=== PATIENT | female | born 1955 | race Caucasian/White ===

== ENCOUNTER 2019-10-10 12:01 | Inpatient (IN) | payer BC ==
[~2019-10-10] VITALS: Ht 167.6 cm; Wt 103.3 kg
[2019-10-10] MEDS: insulin glargine (Lantus) pen - multi-dose SQ SCH (01:00)
[2019-10-10] MEDS ORDERED: normal saline 1000ML IV soln IV ONE (12:40)
[2019-10-10 13:02] LABS: CLARITY,URINE CLOUDY (Clear); COLOR,URINE YELLOW (Yellow); GLUCOSE, URINE NEGATIVE (Neg); KETONES,URINE 15 mg/dl (Neg); LEUKOCYTE ESTERASE ,URINE NEGATIVE (Neg); NITRITES, URINE NEGATIVE (Neg); OCCULT BLOOD,URINE MODERATE (Neg); PROTEIN,URINE 100 mg/dl (Neg); UROBILINOGEN,URINE 0.2 E.U/dL (0.2-1.0)
[2019-10-10 13:03] LABS: UA COLLECTION TYPE FOLEY CATH
[2019-10-10 13:10] LABS: MUCUS STRANDS MODERATE /LPF (Neg); SQUAMOUS EPITHELIAL CELL,UR FEW /LPF (FEW)
[2019-10-10 13:11] LABS: HYALINE CASTS 0-3 /LPF (NEGATIVE)
[2019-10-10 13:16] LABS: TRANSITIONAL EPI CELLS,URINE FEW /HPF
[2019-10-10 13:21] LABS: BACTERIA,URINE NONE SEEN /HPF (Neg)
[2019-10-10 13:22] LABS: AMORPHOUS URATES 1+
[2019-10-10] MEDS ORDERED: HYDROmorphone 1 mg/ml syringe IV ONE (13:30)
--- NOTE | 2019-10-10 13:59 | NUR ---
CT CALLED, INFORMED THEM PATEE AWARE PT DOES NOT WANT THE ORAL CONTRAST, UNDERSTANDS ITS A BETTER PICTURE. PT AGREED TO IV. CURRENTLY SREEKANTH PLACING IV LINE, PICC LINE IS NOT WORKING.
[2019-10-10 14:09] LABS: BASOPHILS % (AUTO) 0.2 % (0-1); EOSINOPHILS % (AUTO) 0.2 % (0-6); HEMOGLOBIN 7.1 g/dl (12.0-16.0); LYMPHOCYTES # (AUTO) 1.2 X10'3 (1.1-4.8); LYMPHOCYTES % (AUTO) 6.5 % (21-51); MEAN CORPUSCULAR HEMOGLOBIN 27.2 PG (27.0-31.0); MEAN CORPUSCULAR HGB CONC 32.2 g/dL (33.0-36.5); MEAN CORPUSCULAR VOLUME 84.4 FL (78-98); MONOCYTES # (AUTO) 1.2 X10'3 (0-0.9); MONOCYTES % (AUTO) 6.2 % (2-12); NEUTROPHILS # (AUTO) 16.3 X10'3 (1.8-7.7); NEUTROPHILS % (AUTO) 86.9 % (42-75); PLATELET COUNT 384 X10'3 (140-440); RED BLOOD COUNT 2.61 X10'6 (4.20-5.60); WHITE BLOOD COUNT 18.7 X10'3 (4.5-11.0)
[2019-10-10] MEDS ORDERED: iohexol 300mg/ml 100ml inj. ONE (14:14)
[2019-10-10 14:24] LABS: PARTIAL THROMBOPLASTIN TIME 37 SECONDS (22-32)
[2019-10-10 14:40] LABS: ALANINE AMINOTRANSFERASE 24 U/L (12-78); ALBUMIN 1.5 G/DL (3.4-5.0); ALBUMIN/GLOBULIN RATIO 0.3 (1.1-1.5); ALKALINE PHOSPHATASE 557 IU/L (46-116); ANION GAP 6 (8-16); ASPARTATE AMINO TRANSFERASE 27 U/L (10-37); BILIRUBIN,TOTAL 0.5 MG/DL (0.1-1.0); BLOOD UREA NITROGEN 8 MG/DL (7-18); BUN/CREATININE RATIO 13.6 (6.6-38.0); CALCIUM 8.1 MG/DL (8.5-10.1); CHLORIDE 104 MMOL/L (99-107); CREATININE 0.59 MG/DL (0.40-0.90); GLUCOSE 111 MG/DL (70-104); MAGNESIUM 1.7 MG/DL (1.5-2.4); POTASSIUM 3.6 MMOL/L (3.5-5.1); SODIUM 138 MMOL/L (135-145); TOTAL CARBON DIOXIDE 28.1 MMOL/L (24-32); TOTAL PROTEIN 5.8 G/DL (6.4-8.2); eGFR > 90 ML/MIN
--- NOTE | 2019-10-10 14:47 | NUR ---
MEDICAL RECORDS RELEASE FAXED TO [facility]
[2019-10-10] MEDS ORDERED: piperacillin/tazo 3.375gm/50ml 50 ML IV ONE (14:50)
[2019-10-10 14:54] LABS: ANISOCYTOSIS 3+; HYPOCHROMASIA 1+; MICROCYTOSIS 1+; PLATELET ESTIMATE NORMAL
--- NOTE | 2019-10-10 14:57 | NUR ---
PATIENT'S SON VISH PHONE NUMBER [phone]
--- NOTE | 2019-10-10 15:50 | NUR ---
CALLED FOR UPDATE ON MEDICAL RECORDS, EXPECTING TO BE FAXED WITHIN THE NEXT 30 MINUTES
[2019-10-10] MEDS ORDERED: INSU100V43 SQ (16:24)
[2019-10-10] MEDS ORDERED: FAMO20TA8 PO (16:24)
[2019-10-10] MEDS ORDERED: FOLI0.4T2 PO (16:24)
[2019-10-10] MEDS ORDERED: LISI10TA4 PO (16:24)
[2019-10-10] MEDS ORDERED: CHOL100025 PO (16:24)
[2019-10-10] MEDS ORDERED: INSU100V9 SQ (16:24)
[2019-10-10] MEDS ORDERED: TRAZ-256 PO (16:29)
[2019-10-10] MEDS ORDERED: POLY17PO10 PO (16:29)
[2019-10-10] MEDS: morphine 4 MG/ML inj SYRINge IV PRN ×4 (16:31→21:14)
[2019-10-10] MEDS ORDERED: ALBU2.5V13 NEB (16:31)
[2019-10-10] MEDS ORDERED: mag hydrox/Alum hydrox/simeth 30ml oral suspension PO PRN (16:55)
[2019-10-10] MEDS ORDERED: morphine 2 MG/ML inj. syringe IV PRN (16:55)
[2019-10-10] MEDS ORDERED: magnesium hydroxide 30ml (MOM) UD suspension PO PRN (16:55)
[2019-10-10] MEDS: normal saline 1000ml 1,000 ML IV SCH (17:00)
--- NOTE | 2019-10-10 18:47 | NUR ---
Wound pictures placed on chart of abd post op wound. Packed wound with moist gauze and dressed with abd pad and bordered gauze. Patient tolerated procedure well.
[2019-10-10] MEDS ORDERED: traZODone 50mg tablet PO PRN (18:50)
[2019-10-10] MEDS ORDERED: polyethylene glycol 3350 17gm powd pack PO PRN (18:50)
[2019-10-10] MEDS ORDERED: piperacillin/tazo 4.5gm/100ml 100 ML IV SCH (20:00)
[2019-10-10] MEDS: famotidine 10mg tablet PO SCH (20:00)
[2019-10-10] MEDS ORDERED: famotidine 20mg tablet PO SCH (20:00)
[2019-10-10] MEDS: heparin, porcine 5000 units/ml vial SQ SCH (20:35)
[2019-10-10] MEDS: linezolid 600mg/300ml PREMIX 300 ML IV SCH (21:05)
--- NOTE | 2019-10-10 21:21 | NUR ---
PT PULLED UP IN BED AND REPOSITIONED WITH PILLOW UNDER PT'S LEFT SIDE. PT REPORTS THAT SHE FEELS BETTER.
--- NOTE | 2019-10-10 21:24 | NUR ---
AYAN GONZALES RN OF SURGICAL WILL TELL RN TO CALL ME.
[2019-10-10] MEDS: albuterol 2.5 MG/3 ML nebule NEB SCH (21:31)
--- NOTE | 2019-10-10 21:38 | NUR ---
RN NOT AVAILABLE FOR REPORT
--- NOTE | 2019-10-10 22:45 | NUR ---
Report from Siria BARRIOS RN received at around 0 and patient followed shortly accompanied by her daughter. Patient transferred from [facility] to bed using slide board and settled in to new surroundings. Patient is currently NPO status pending possible surgery 10/11. Mouth swabs provided. Pt. deneis any pain at this time.
[2019-10-10 23:15] VITALS: BP 130/60
[2019-10-11] VITALS (15 sets, daily range): BP systolic 103–145; BP diastolic 43–72
[2019-10-11] MEDS: morphine 2 MG/ML inj. syringe IV PRN ×3 (01:12→13:56)
--- NOTE | 2019-10-11 01:46 | NUR ---
PT DOES NOT HAVE AN APPT DUR TO BEING HOSPITALIZED SINCE MAY 2019 Addendum: 10/11/19 at 0232 by Noemy Koroma RN Amended: Links added.
--- NOTE | 2019-10-11 01:50 | NUR ---
no appt d/t being hospitalized since may 2019 Addendum: 10/11/19 at 0153 by Noemy Koroma RN Amended: Links added.
[2019-10-11] MEDS: piperacillin/tazo 4.5gm/100ml 100 ML IV SCH ×3 (01:55→20:31)
[2019-10-11] MEDS: albuterol 2.5 MG/3 ML nebule NEB SCH ×4 (02:00→21:03)
[2019-10-11] MEDS: normal saline 1000ml 1,000 ML IV SCH ×3 (02:40→22:51)
[2019-10-11 05:44] LABS: BASOPHILS # (AUTO) 0.1 X10'3 (0-0.2); BASOPHILS % (AUTO) 0.5 % (0-1); EOSINOPHILS # (AUTO) 0.1 X10'3 (0-0.9); EOSINOPHILS % (AUTO) 0.7 % (0-6); LYMPHOCYTES # (AUTO) 1.3 X10'3 (1.1-4.8); MEAN CORPUSCULAR HEMOGLOBIN 27.3 PG (27.0-31.0); MEAN CORPUSCULAR HGB CONC 32.3 g/dL (33.0-36.5); MEAN CORPUSCULAR VOLUME 84.3 FL (78-98); MEAN PLATELET VOLUME 8.7 FL (7.4-10.4); MONOCYTES # (AUTO) 0.8 X10'3 (0-0.9); MONOCYTES % (AUTO) 6.8 % (2-12); NEUTROPHILS # (AUTO) 9.4 X10'3 (1.8-7.7); PLATELET COUNT 347 X10'3 (140-440); RED CELL DISTRIBUTION WIDTH 21.7 % (11.5-14.5); WHITE BLOOD COUNT 11.6 X10'3 (4.5-11.0)
[2019-10-11 05:58] LABS: HEMATOCRIT 20.3 % (35.0-45.0); HEMOGLOBIN 6.6 g/dl (12.0-16.0)
[2019-10-11 06:04] LABS: ALBUMIN 1.3 G/DL (3.4-5.0); ANION GAP 8 (8-16); BLOOD UREA NITROGEN 6 MG/DL (7-18); BUN/CREATININE RATIO 12.5 (6.6-38.0); CALCIUM 7.9 MG/DL (8.5-10.1); CHLORIDE 107 MMOL/L (99-107); CREATININE 0.48 MG/DL (0.40-0.90); GLUCOSE 78 MG/DL (70-104); POTASSIUM 3.5 MMOL/L (3.5-5.1); SODIUM 140 MMOL/L (135-145); TOTAL CARBON DIOXIDE 24.7 MMOL/L (24-32); eGFR > 90 ML/MIN
--- NOTE | 2019-10-11 06:20 | NUR ---
Problems reprioritized. Patient report given, questions answered & plan of care reviewed with Marley OSEI.
[2019-10-11 06:58] LABS: ANISOCYTOSIS 3+; GIANT PLATELET FEW; PLATELET ESTIMATE NORMAL
[2019-10-11 06:59] LABS: HYPOCHROMASIA 1+
[2019-10-11] MEDS: famotidine 10mg tablet PO SCH ×2 (07:41→22:25)
[2019-10-11] MEDS: lisinopril 10 MG tablet PO SCH (07:41)
[2019-10-11] MEDS: linezolid 600mg/300ml PREMIX 300 ML IV SCH ×2 (07:43→20:31)
[2019-10-11] MEDS: heparin, porcine 5000 units/ml vial SQ SCH ×2 (07:58→11:42)
[2019-10-11] MEDS: vitamin D (cholecalciferol) 1,000 unit tablet PO SCH (08:00)
[2019-10-11] MEDS: folic acid 1mg tablet PO SCH (08:00)
[2019-10-11] MEDS ORDERED: midazolam 2 mg/2 ml injection IV PRN (08:40)
[2019-10-11] MEDS ORDERED: fentaNYL/PF 50MCG/1 ML 2ML syringe IV PRN (08:40)
[2019-10-11] MEDS ORDERED: LIDOcaine 1%/PF 5ML 10 MG/ML VIAL SQ ONE (08:40)
--- NOTE | 2019-10-11 09:34 | NUR ---
PICC mid to ddistal SVC. Ok to use.
--- NOTE | 2019-10-11 10:13 | NUR ---
Patient came with FC in place, placed on 09/20/2019 at [facility]. Addendum: 10/11/19 at 1016 by Marley Rivera RN Amended: Links added.
[2019-10-11 13:10] LABS: HEMATOCRIT 23.4 % (35.0-45.0); HEMOGLOBIN 7.7 g/dl (12.0-16.0); MEAN CORPUSCULAR HEMOGLOBIN 27.7 PG (27.0-31.0); MEAN CORPUSCULAR HGB CONC 32.9 g/dL (33.0-36.5); MEAN CORPUSCULAR VOLUME 84.3 FL (78-98); MEAN PLATELET VOLUME 8.5 FL (7.4-10.4); PLATELET COUNT 330 X10'3 (140-440); RED BLOOD COUNT 2.78 X10'6 (4.20-5.60); RED CELL DISTRIBUTION WIDTH 20.4 % (11.5-14.5); WHITE BLOOD COUNT 10.8 X10'3 (4.5-11.0)
[2019-10-11] MEDS ORDERED: fentaNYL/PF 50MCG/1 ML 2ML syringe ONE (14:30)
[2019-10-11] MEDS ORDERED: midazolam 2 mg/2 ml injection ONE (14:30)
[2019-10-11] MEDS ORDERED: NORMAL SALINE IV ONE (15:25)
[2019-10-11] MEDS ORDERED: SINCALIDE IV ONE (15:25)
[2019-10-11] MEDS: Dakins solution (1/4 strength) 473ml solution TP SCH (16:06)
--- NOTE | 2019-10-11 16:53 | NUR ---
Calorie Count/Malnutrition consults: Pt admit w/ abdominal wall cellulitis and necrotic stoma found to have abdominal wall abscesses as well per MD note. Pt NPO since admit and to remain NPO for OR tomorrow for stoma revision per RN. Pt hx prior colectomy and colostomy. No colostomy output noted today. RN reports pt not appropriate for calorie count at this time. Pt has mild weakness, current wt pt stated w/ BMI 38 and no wt hx, no significant edema noted, and does not meet minimum malnutrition criteria at this time. Pt is receiving zyvox and will need zyvox ed once stable post-op. Will continue to monitor for diet advancement and PO diet tolerance. Addendum: 10/11/19 at [address] Amended: Links added.
[2019-10-11] MEDS: ketorolac trometh. 30mg/ml inj. IV PRN (17:53)
--- NOTE | 2019-10-11 18:00 | NUR ---
Problems reprioritized. Patient report given, questions answered & plan of care reviewed with Tiffanie OSEI.
--- NOTE | 2019-10-11 18:00 | NUR ---
Problems reprioritized. Patient report given, questions answered & plan of care reviewed with Pa.
[2019-10-11] MEDS ORDERED: ketorolac trometh. 30mg/ml inj. IV SCH (20:00)
[2019-10-11] MEDS ORDERED: ketorolac trometh. 30mg/ml inj. IM SCH (20:00)
[2019-10-11] MEDS: insulin glargine (Lantus) pen - multi-dose SQ SCH (21:00)
[2019-10-12] VITALS (18 sets, daily range): BP systolic 105–183; BP diastolic 53–82
[2019-10-12] MEDS: ketorolac trometh. 30mg/ml inj. IV PRN (01:25)
[2019-10-12] MEDS: albuterol 2.5 MG/3 ML nebule NEB SCH ×3 (02:00→21:53)
[2019-10-12] MEDS: normal saline 1000ml 1,000 ML IV SCH ×2 (05:13→18:51)
--- NOTE | 2019-10-12 06:35 | NUR ---
Patient in room [facility]EN 353. I have received report from Intapp and had the opportunity to ask questions and assume patient care.
[2019-10-12] MEDS: linezolid 600mg/300ml PREMIX 300 ML IV SCH ×2 (07:05→22:55)
[2019-10-12] MEDS: piperacillin/tazo 4.5gm/100ml 100 ML IV SCH ×2 (07:05→23:43)
[2019-10-12] MEDS: heparin, porcine 5000 units/ml vial SQ SCH ×2 (08:00→21:38)
[2019-10-12] MEDS: Dakins solution (1/4 strength) 473ml solution TP SCH ×2 (08:00→20:00)
[2019-10-12] MEDS: folic acid 1mg tablet PO SCH (08:00)
[2019-10-12] MEDS: lisinopril 10 MG tablet PO SCH (08:00)
[2019-10-12] MEDS: vitamin D (cholecalciferol) 1,000 unit tablet PO SCH (08:00)
[2019-10-12] MEDS: famotidine 10mg tablet PO SCH ×2 (08:00→20:00)
--- NOTE | 2019-10-12 08:00 | NUR ---
Pt refuses to let me assess coccyx or change dressing.
--- NOTE | 2019-10-12 09:30 | NUR ---
Pt down to HIDA scan.
[2019-10-12] MEDS: morphine 2 MG/ML inj. syringe IV PRN (11:57)
--- NOTE | 2019-10-12 12:00 | NUR ---
Pt back to floor from IR. Will not let me look at coccyx or change any dressing.
[2019-10-12 12:23] LABS: BASOPHILS # (AUTO) 0.1 X10'3 (0-0.2); BASOPHILS % (AUTO) 0.6 % (0-1); EOSINOPHILS % (AUTO) 0.2 % (0-6); HEMATOCRIT 27.8 % (35.0-45.0); HEMOGLOBIN 8.9 g/dl (12.0-16.0); LYMPHOCYTES # (AUTO) 0.9 X10'3 (1.1-4.8); LYMPHOCYTES % (AUTO) 10.1 % (21-51); MEAN CORPUSCULAR HEMOGLOBIN 27.3 PG (27.0-31.0); MEAN CORPUSCULAR HGB CONC 31.9 g/dL (33.0-36.5); MEAN CORPUSCULAR VOLUME 85.4 FL (78-98); MEAN PLATELET VOLUME 8.4 FL (7.4-10.4); MONOCYTES # (AUTO) 0.6 X10'3 (0-0.9); MONOCYTES % (AUTO) 6.5 % (2-12); NEUTROPHILS # (AUTO) 7.2 X10'3 (1.8-7.7); NEUTROPHILS % (AUTO) 82.6 % (42-75); PLATELET COUNT 354 X10'3 (140-440); RED BLOOD COUNT 3.26 X10'6 (4.20-5.60); WHITE BLOOD COUNT 8.7 X10'3 (4.5-11.0)
[2019-10-12 12:38] LABS: ALBUMIN 1.5 G/DL (3.4-5.0); ANION GAP 9 (8-16); BLOOD UREA NITROGEN 4 MG/DL (7-18); BUN/CREATININE RATIO 7.3 (6.6-38.0); CHLORIDE 109 MMOL/L (99-107); CREATININE 0.55 MG/DL (0.40-0.90); GLUCOSE 107 MG/DL (70-104); POTASSIUM 3.6 MMOL/L (3.5-5.1); SODIUM 139 MMOL/L (135-145); eGFR > 90 ML/MIN
[2019-10-12] MEDS ORDERED: dexamethasone sod phosphate 10mg/ml inj ONE (12:54)
[2019-10-12] MEDS ORDERED: sevoflurane 250ml liquid IH ONE ×2 (12:54→13:25)
--- NOTE | 2019-10-12 13:00 | NUR ---
Pt down to OR.
[2019-10-12] MEDS ORDERED: fentaNYL/PF 50MCG/1 ML 2ML syringe ONE ×2 (13:29→14:02)
[2019-10-12] MEDS ORDERED: midazolam 2 mg/2 ml injection ONE ×2 (13:30→15:31)
[2019-10-12] MEDS ORDERED: ringers solution, lacted 1,000 ML IV SCH (13:42)
[2019-10-12] MEDS ORDERED: meperidine/PF 25mg/ml syringe IV PRN ×3 (13:45)
[2019-10-12] MEDS ORDERED: proCHLORperazine 10 MG/2 ml inj IV PRN (13:45)
[2019-10-12] MEDS ORDERED: morphine 4 MG/ML inj SYRINge IV PRN ×2 (13:45)
[2019-10-12] MEDS ORDERED: ondansetron/PF 4mg/2ml inj IV PRN (13:45)
[2019-10-12] MEDS ORDERED: ondansetron/PF 4mg/2ml inj ONE (14:00)
[2019-10-12] MEDS ORDERED: rocuronium 10mg/ml inj IV ONE (14:00)
[2019-10-12] MEDS ORDERED: propofol inj 20 ML IV ONE (14:00)
[2019-10-12] MEDS ORDERED: neostigmine methylsulfate 1 MG/ML 10ml vial ONE (14:00)
[2019-10-12] MEDS ORDERED: LIDOcaine 2% (20mg/ml) 5ml vial ONE (14:00)
[2019-10-12] MEDS ORDERED: glycopyrrolate 0.2mg/ml inj ONE (14:00)
[2019-10-12] MEDS ORDERED: midazolam 100mg in NS 100ml 100 ML IV PRN ×2 (14:30→21:02)
[2019-10-12] MEDS ORDERED: ipratropium/albuterol 3ml nebule NEB PRN ×2 (14:30→21:05)
[2019-10-12] MEDS ORDERED: FENTANYL-0.9 % NACL/PF 100 ML IV PRN (14:30)
[2019-10-12] MEDS ORDERED: morphine 10mg/ml inj. ONE (14:51)
[2019-10-12] MEDS ORDERED: midazolam 2 mg/2 ml injection IV ONE (15:30)
[2019-10-12 15:31] LABS: ISTAT ANION GAP 5 (8-12); ISTAT BUN 3 mg/dL (6-19); ISTAT CL 109 mmol/L (99-107); ISTAT CREATININE 0.3 mg/dL (0.6-1.1); ISTAT GLUCOSE 104 mg/dL (70-104); ISTAT HGB 7.1 g/dl (12.0-16.0); ISTAT Hct 21 %PCV (35-48); ISTAT IONIZED CALCIUM 1.09 mmol/L (1.03-1.32); ISTAT NA 139 mmol/L (135-145); ISTAT TOTAL CO2 25 mmol/L (24-32); ISTAT eGFR > 90 ML/MIN
[2019-10-12 15:36] LABS: ABG BASE EXCESS -3.2 mmol/L (-2.0-3.0); ABG HCO3 19.7 mmol/L (22.0-26.0); ABG OXYGEN SATURATION 99.7 % (95-98); ABG PCO2 (T) 26.1 mmHg (35.0-45.0); ABG PH (T) 7.496 (7.350-7.450); ABG PO2 (T) 328.8 mmHg (83-108); FCOHb 0.7 % (0.5-1.5); FMetHb 0.4 % (0.3-1.12); FO2Hb 98.6 % (94-100); MINUTE VOLUME 9 L/min; PEEP 5 cm H2O; RESPIRATORY RATE 12 b/min; TIDAL VOLUME 650 mL; TOTAL HEMOGLOBIN 6.3 G/dl (12.0-16.0)
--- NOTE | 2019-10-12 16:18 | NUR ---
Report called to receiving nurse. Transferred via BED Belongings . Special Issues communicated to receiving nurse. AWAKENS TO VOICE. VITALS STABLE. DOES NOT APPEAR TO BE IN DISCOMFORT. [facility] AT THIS [facility].
--- NOTE | 2019-10-12 17:04 | NUR ---
1600 pT RECEIVED FROM RECOVERY ROOM. pT PLACED ON VENT, MONITOR, PT ASSESSED AND POSITIONED FOR COMFORT.
--- NOTE | 2019-10-12 18:35 | NUR ---
I received report and assumed care of pt, pt resting in bed rise and fall of chest cavity equile and symmetrical, Pt has a CHARMAINE drain to the right abd. with dark blood, midline abdominal dressing in place moderate amount of drainage noted, dressing reenforced, colostomy in place at midline abd no drainage in colostomy/ileostomy bag at this time, pt opens eyes to verbal stimuli is slow to follow commands, bare hugger in place pt is mottled form the chest to the feet, distal pulses palp bilat.
[2019-10-12] MEDS ORDERED: linezolid 600mg tablet PO SCH (20:00)
[2019-10-12 20:37] LABS: BASOPHILS # (AUTO) 0.1 X10'3 (0-0.2); BASOPHILS % (AUTO) 0.4 % (0-1); EOSINOPHILS % (AUTO) 0.2 % (0-6); HEMATOCRIT 27.6 % (35.0-45.0); LYMPHOCYTES # (AUTO) 1.3 X10'3 (1.1-4.8); LYMPHOCYTES % (AUTO) 9.9 % (21-51); MEAN CORPUSCULAR HEMOGLOBIN 27.5 PG (27.0-31.0); MEAN CORPUSCULAR HGB CONC 32.6 g/dL (33.0-36.5); MEAN CORPUSCULAR VOLUME 84.4 FL (78-98); MEAN PLATELET VOLUME 8.7 FL (7.4-10.4); MONOCYTES # (AUTO) 0.7 X10'3 (0-0.9); MONOCYTES % (AUTO) 4.9 % (2-12); NEUTROPHILS # (AUTO) 11.5 X10'3 (1.8-7.7); NEUTROPHILS % (AUTO) 84.6 % (42-75); PLATELET COUNT 431 X10'3 (140-440); RED BLOOD COUNT 3.28 X10'6 (4.20-5.60); WHITE BLOOD COUNT 13.6 X10'3 (4.5-11.0)
--- NOTE | 2019-10-12 20:49 | NUR ---
spoke to Dr. De La Rosa regarding pts increase in heart rate st 140's and temp 39.2 he requested carbonation tester to consult, spoke to Parker Gutierrez NP temp now 39.5 heart rate 180's orders received for 2liter nc bolus of NS and to give Tylenol 1000mg IV now, pt responded positivity to the fluid bolus and the IV Tylenol. pt is less mottled then before. morphine drip started for pain control, multiple Antibiotics started per practitioners orders. Parker Gutierrez NP aware of pts low urine output of less then 30ml/hr. no new orders at this time regarding urine output.
[2019-10-12] MEDS ORDERED: acetaminophen 1,000mg/100ml IV 100 ML IV ONE (20:55)
[2019-10-12] MEDS: insulin glargine (Lantus) pen - multi-dose SQ SCH (21:00)
[2019-10-12] MEDS ORDERED: hydrocortisone sod succ/PF 250mg/2ml inj. IV ONE (21:55)
[2019-10-12 21:57] LABS: ALANINE AMINOTRANSFERASE 14 U/L (12-78); ALBUMIN 1.5 G/DL (3.4-5.0); ALBUMIN/GLOBULIN RATIO 0.3 (1.1-1.5); ALKALINE PHOSPHATASE 275 IU/L (46-116); ANION GAP 9 (8-16); ASPARTATE AMINO TRANSFERASE 17 U/L (10-37); BILIRUBIN,TOTAL 0.4 MG/DL (0.1-1.0); BLOOD UREA NITROGEN 5 MG/DL (7-18); BUN/CREATININE RATIO 8.1 (6.6-38.0); CALCIUM 7.9 MG/DL (8.5-10.1); CHLORIDE 111 MMOL/L (99-107); CREATININE 0.62 MG/DL (0.40-0.90); GLUCOSE 79 MG/DL (70-104); MAGNESIUM 1.5 MG/DL (1.5-2.4); PHOSPHORUS 3.2 MG/DL (2.3-4.5); SODIUM 143 MMOL/L (135-145); TOTAL CARBON DIOXIDE 22.6 MMOL/L (24-32); TOTAL PROTEIN 6.3 G/DL (6.4-8.2); eGFR > 90 ML/MIN
[2019-10-12 22:07] LABS: PLATELET ESTIMATE NORMAL
[2019-10-12 22:08] LABS: ANISOCYTOSIS 3+
[2019-10-12 22:09] LABS: POLYCHROMASIA FEW; TARGET CELLS FEW
[2019-10-12 22:10] LABS: ACANTHOCYTES FEW
[2019-10-12] MEDS ORDERED: hydrocortisone sod succ/PF 100mg/2ml inj. IV ONE (22:15)
[2019-10-12] MEDS: fluconazole/NS 400mg/200ml bag 200 ML IV SCH (22:16)
[2019-10-12] MEDS: morphine/NS 100mg/100ml bag 100 ML IV SCH (23:01)
[2019-10-13] VITALS (29 sets, daily range): BP systolic 91–145; BP diastolic 48–73
[2019-10-13] MEDS ORDERED: albumin (Human) 5% 250ml 500 ML IV ONE (01:03)
[2019-10-13] MEDS ORDERED: albumin (Human) 5% 250ml 250 ML IV ONE ×2 (01:05)
--- NOTE | 2019-10-13 01:05 | NUR ---
pts sbp 70 spoke to Parker Gutierrez INCINERATOR PLANT SUPERVISOR orders received to give 500ml of 5% albumin
[2019-10-13 03:11] LABS: ALBUMIN 1.7 G/DL (3.4-5.0); ANION GAP 13 (8-16); BLOOD UREA NITROGEN 5 MG/DL (7-18); BUN/CREATININE RATIO 9.4 (6.6-38.0); CALCIUM 7.3 MG/DL (8.5-10.1); CHLORIDE 113 MMOL/L (99-107); CREATININE 0.53 MG/DL (0.40-0.90); GLUCOSE 110 MG/DL (70-104); POTASSIUM 3.3 MMOL/L (3.5-5.1); SODIUM 143 MMOL/L (135-145); TOTAL CARBON DIOXIDE 17.1 MMOL/L (24-32); eGFR > 90 ML/MIN
[2019-10-13 03:15] LABS: MEAN CORPUSCULAR HEMOGLOBIN 27.3 PG (27.0-31.0); MEAN CORPUSCULAR HGB CONC 32.2 g/dL (33.0-36.5); MEAN CORPUSCULAR VOLUME 84.8 FL (78-98); MEAN PLATELET VOLUME 8.5 FL (7.4-10.4); PLATELET COUNT 329 X10'3 (140-440); RED BLOOD COUNT 2.38 X10'6 (4.20-5.60); RED CELL DISTRIBUTION WIDTH 20.7 % (11.5-14.5)
[2019-10-13 03:26] LABS: HEMOGLOBIN 6.5 g/dl (12.0-16.0)
[2019-10-13 03:27] LABS: HEMATOCRIT 20.2 % (35.0-45.0)
[2019-10-13] MEDS ORDERED: magnesium 4gm in 100ml NS 100 ML IV PRN (03:30)
--- NOTE | 2019-10-13 03:30 | NUR ---
spoke to Joshua SHAH regarding H/H orders received to transfuse 2 units PRBC.
[2019-10-13] MEDS: albuterol 2.5 MG/3 ML nebule NEB SCH ×4 (03:56→20:57)
[2019-10-13 04:16] LABS: ABG BASE EXCESS -8.1 mmol/L (-2.0-3.0); ABG HCO3 14.2 mmol/L (22.0-26.0); ABG OXYGEN SATURATION 99.3 % (95-98); ABG PCO2 (T) 18.9 mmHg (35.0-45.0); ABG PH (T) 7.495 (7.350-7.450); ABG PO2 (T) 213.2 mmHg (83-108); FMetHb 0.4 % (0.3-1.12); FO2Hb 98.9 % (94-100); MINUTE VOLUME 12 L/min; PEEP 5 cm H2O; RESPIRATORY RATE (OBSERVED) 16 b/min; TIDAL VOLUME 650 mL; TOTAL HEMOGLOBIN 6.7 G/dl (12.0-16.0)
[2019-10-13 06:10] LABS: TOTAL CELLS COUNTED 100
[2019-10-13 06:11] LABS: ANISOCYTOSIS 3+; HYPOCHROMASIA 1+; MICROCYTOSIS 1+; PLATELET ESTIMATE NORMAL; POLYCHROMASIA FEW; TARGET CELLS FEW
--- NOTE | 2019-10-13 06:30 | NUR ---
Patient in room CICU 2007. I have received report from Agus OSEI and had the opportunity to ask questions and assume patient care.
--- NOTE | 2019-10-13 06:30 | NUR ---
report given to rec rn plan of care reviewed
[2019-10-13] MEDS: potassium Cl 20mEq/100mL bag 100 ML IV PRN ×2 (06:54→08:17)
[2019-10-13] MEDS: lisinopril 10 MG tablet PO SCH (08:00)
[2019-10-13] MEDS: Dakins solution (1/4 strength) 473ml solution TP SCH ×2 (08:00→20:58)
[2019-10-13] MEDS: folic acid 1mg tablet PO SCH (08:00)
[2019-10-13] MEDS: heparin, porcine 5000 units/ml vial SQ SCH ×2 (08:00→20:38)
[2019-10-13] MEDS: famotidine 10mg tablet PO SCH (08:00)
[2019-10-13] MEDS: vitamin D (cholecalciferol) 1,000 unit tablet PO SCH (08:00)
--- NOTE | 2019-10-13 08:37 | NUR ---
Patient's wound dressing is becoming saturated with wound drainage and fecal matter. The shift coordinator RN reinforced the dressing. This morning it was noticed that the bed is now becoming saturated with fecal matter and drainage. Dr. De La Rosa was called and updated on the situation. He ordered the dressing be removed, and a new ostomy appliance be placed over the old ostomy site to capture the drainage.
[2019-10-13] MEDS: linezolid 600mg/300ml PREMIX 300 ML IV SCH ×2 (08:46→20:41)
[2019-10-13] MEDS: piperacillin/tazo 4.5gm/100ml 100 ML IV SCH ×2 (08:46→20:38)
[2019-10-13] MEDS: fluconazole/NS 400mg/200ml bag 200 ML IV SCH (08:46)
[2019-10-13] MEDS ORDERED: sodium bicarbonate (8.4%) 1 mEq/ml syringe IV ONE (14:30)
[2019-10-13] MEDS: sodium chloride 0.45% 1,000 ML IV SCH (14:41)
[2019-10-13] MEDS ORDERED: MIDAZOLAM IV SCH (15:00)
[2019-10-13] MEDS ORDERED: NORMAL SALINE IV SCH (15:00)
--- NOTE | 2019-10-13 15:05 | NUR ---
TPN consult. Patient has PICC line. Is intubated and sedated. Per MD note has abdomen "full of stool" with it coming out of 1 of 3 incisions and to start TPN. Recommend electrolyte formula. In view of intubation and using adjusted IBW for estimated nutrition needs, unable to meet patient's protein needs without overfeeding using the available Clinimix 5/20 formula and unable to provide custom TPN at this time. Pt is a transfer from [facility] with necrotic ostomy, history of Crohn's disease and sepsis per surgeon note. She is s/o relocation of ostomy, lysis of adhesions, drainage of intraabdominal abscess, and partial abdomen wound closure. Patient's ostomy is an ileostomy per surgeon note. TPN d/w pharmacy. Recommend: 1. Continuous 2:1 TPN using Clinimix E 5/20 at 70 ml/hr goal rate. 2. Separate 20% intralipids to run for 12 hours daily at 7 ml/hr to provide total 84 grams lipids. 3. TPN and Intralipids will provide total 1848 calories, total 84 grams protein, total 1646 non-protein calories, and 2.81 mg/kg/min CHO loading, .79 g/kg fat (9% of calories, will meet EFA needs). 4. daily wts 5. prealbumin and triglycerides q tuesday and Addendum: 10/13/19 at [address] Amended: Links added.
[2019-10-13] MEDS: NORMAL SALINE IV SCH (15:34)
[2019-10-13] MEDS: MIDAZOLAM IV SCH (15:34)
[2019-10-13] MEDS: fat emulsion IV bag 250 ML IV SCH (17:19)
[2019-10-13 17:41] LABS: OXYGEN SATURATION (MIXED VEN) 83.3 % (60-80); PO2 MIXED VENOUS (TEMP COR) 45.8 mmHg (35-46)
[2019-10-13] MEDS ORDERED: mineral oil/petrolatum ophthal oint EACHEYE SCH (20:00)
[2019-10-13] MEDS: lactobacillus rhamnosus 10,000 MMU CELLS/CAPSULE PO SCH (20:38)
[2019-10-13] MEDS: famotidine/PF 10 mg/ml inj IV SCH (20:38)
[2019-10-13] MEDS: insulin regular, human vial - multi-dose SQ SCH (22:20)
[2019-10-13] MEDS: insulin glargine (Lantus) pen - multi-dose SQ SCH (22:24)
[2019-10-13] MEDS: morphine/NS 100mg/100ml bag 100 ML IV SCH (22:57)
[2019-10-14] VITALS (24 sets, daily range): BP systolic 100–146; BP diastolic 54–69
[2019-10-14] MEDS: MIDAZOLAM IV SCH ×2 (00:52→15:30)
[2019-10-14] MEDS: NORMAL SALINE IV SCH ×2 (00:52→15:30)
[2019-10-14] MEDS: sodium chloride 0.45% 1,000 ML IV SCH ×3 (00:58→19:52)
[2019-10-14 02:11] LABS: BASOPHILS # (AUTO) 0.1 X10'3 (0-0.2); BASOPHILS % (AUTO) 0.9 % (0-1); EOSINOPHILS % (AUTO) 0 % (0-6); HEMATOCRIT 24.2 % (35.0-45.0); HEMOGLOBIN 8.2 g/dl (12.0-16.0); LYMPHOCYTES # (AUTO) 0.5 X10'3 (1.1-4.8); LYMPHOCYTES % (AUTO) 5.4 % (21-51); MEAN CORPUSCULAR HEMOGLOBIN 29.2 PG (27.0-31.0); MEAN CORPUSCULAR VOLUME 85.9 FL (78-98); MEAN PLATELET VOLUME 8.2 FL (7.4-10.4); MONOCYTES # (AUTO) 0.5 X10'3 (0-0.9); MONOCYTES % (AUTO) 5.6 % (2-12); NEUTROPHILS # (AUTO) 8.6 X10'3 (1.8-7.7); NEUTROPHILS % (AUTO) 88.1 % (42-75); PLATELET COUNT 242 X10'3 (140-440); RED BLOOD COUNT 2.82 X10'6 (4.20-5.60); RED CELL DISTRIBUTION WIDTH 19.9 % (11.5-14.5); WHITE BLOOD COUNT 9.8 X10'3 (4.5-11.0)
[2019-10-14 02:23] LABS: ALBUMIN 1.5 G/DL (3.4-5.0); ANION GAP 12 (8-16); BLOOD UREA NITROGEN 9 MG/DL (7-18); BUN/CREATININE RATIO 12.3 (6.6-38.0); CALCIUM 7.5 MG/DL (8.5-10.1); CHLORIDE 108 MMOL/L (99-107); CREATININE 0.73 MG/DL (0.40-0.90); GLUCOSE 423 MG/DL (70-104); MAGNESIUM 1.3 MG/DL (1.5-2.4); PHOSPHORUS 2.1 MG/DL (2.3-4.5); POTASSIUM 3.5 MMOL/L (3.5-5.1); SODIUM 138 MMOL/L (135-145); TOTAL CARBON DIOXIDE 18.1 MMOL/L (24-32); eGFR 81 ML/MIN
[2019-10-14] MEDS: insulin regular, human vial - multi-dose SQ SCH ×4 (02:26→20:10)
[2019-10-14] MEDS: mineral oil/petrolatum ophthal oint EACHEYE SCH ×4 (02:32→19:50)
[2019-10-14] MEDS: albuterol 2.5 MG/3 ML nebule NEB SCH ×4 (02:54→22:03)
[2019-10-14 03:44] LABS: TOTAL CELLS COUNTED 100
[2019-10-14 03:45] LABS: ACANTHOCYTES FEW; ANISOCYTOSIS 2+; PLATELET ESTIMATE NORMAL; TARGET CELLS FEW
[2019-10-14 05:01] LABS: ABG BASE EXCESS -10.9 mmol/L (-2.0-3.0); ABG HCO3 12.7 mmol/L (22.0-26.0); ABG OXYGEN SATURATION 98.3 % (95-98); ABG PCO2 (T) 20.1 mmHg (35.0-45.0); ABG PH (T) 7.417 (7.350-7.450); ABG PO2 (T) 130.6 mmHg (83-108); FMetHb 0.1 % (0.3-1.12); FO2Hb 98.2 % (94-100); MINUTE VOLUME 8 L/min; PATIENT TEMPERATURE 36.3; PEEP 5 cm H2O; RESPIRATORY RATE 12 b/min; RESPIRATORY RATE (OBSERVED) 12 b/min; TIDAL VOLUME 650 mL; TOTAL HEMOGLOBIN 6.5 G/dl (12.0-16.0)
[2019-10-14] MEDS: DEXT IV SCH ×2 (07:36→21:32)
[2019-10-14] MEDS: LYTES IV SCH ×2 (07:36→21:32)
[2019-10-14] MEDS: CALCIUM IV SCH ×2 (07:36→21:32)
[2019-10-14] MEDS: [UNRECOGNIZED DRUG - OTHER] IV SCH ×2 (07:36→21:32)
[2019-10-14] MEDS: TRACE ELEMENT IV SCH ×2 (07:36→21:32)
[2019-10-14] MEDS: fat emulsion IV bag 250 ML IV SCH ×2 (07:37→19:53)
[2019-10-14] MEDS: heparin, porcine 5000 units/ml vial SQ SCH ×2 (08:20→19:51)
[2019-10-14] MEDS: linezolid 600mg/300ml PREMIX 300 ML IV SCH ×2 (08:20→19:51)
[2019-10-14] MEDS: famotidine/PF 10 mg/ml inj IV SCH ×2 (08:21→19:50)
[2019-10-14] MEDS: folic acid 1mg tablet PO SCH (08:21)
[2019-10-14] MEDS: vitamin D (cholecalciferol) 1,000 unit tablet PO SCH (08:21)
[2019-10-14] MEDS: lactobacillus rhamnosus 10,000 MMU CELLS/CAPSULE PO SCH ×2 (08:21→19:51)
[2019-10-14] MEDS: Dakins solution (1/4 strength) 473ml solution TP SCH ×2 (08:22→19:52)
[2019-10-14] MEDS: lisinopril 10 MG tablet PO SCH (08:22)
[2019-10-14] MEDS: fluconazole/NS 400mg/200ml bag 200 ML IV SCH (08:23)
[2019-10-14] MEDS: piperacillin/tazo 4.5gm/100ml 100 ML IV SCH ×2 (08:24→19:50)
[2019-10-14] MEDS: MVI, adult No.4 with vit. K 10 ML in normal saline 500ml IV soln 500 ML IV SCH ×2 (09:41)
[2019-10-14] MEDS: magnesium 2GM in 50ml NS 50 ML IV PRN (10:00)
--- NOTE | 2019-10-14 11:51 | NUR ---
Malnutrition consult: Pt has no visible signs of muscle/fat wasting, trace edema, no significant wt loss hx, and does not meet minimum malnutrition criteria at this time. New bed scale wt per RN today 113kg though pillows and other materials on bed so original 106kg stated wt likely accurate. GLU jumped to 423 on hyperglycemia protocol w/ TPN currently at goal. Phos 2.1 and Mg 1.3 likely from combination TPN and GLU elevation; to receive replacement per protocol on electrolyte-containing PN. Pt will likely need increase in TPN goal rate in order to better meet nutrition support needs in critical illness. Unable to fully meet protein needs without volume overload since cannot make custom TPNs and current high dextrose TPN formulary at this time. Updated Recs below; will recommend advancement once electrolytes are more stable and monitor for PN tolerance. TPN consult. Patient has PICC line. Is intubated and sedated. Per MD note has abdomen "full of stool" with it coming out of 1 of 3 incisions and to start TPN. Recommend electrolyte formula. In view of intubation and using adjusted IBW for estimated nutrition needs, unable to meet patient's protein needs without overfeeding using the available Clinimix 5/20 formula and unable to provide custom TPN at this time. Pt is a transfer from [facility] with necrotic ostomy, history of Crohn's disease and sepsis per surgeon note. She is s/o relocation of ostomy, lysis of adhesions, drainage of intraabdominal abscess, and partial abdomen wound closure. Patient's ostomy is an ileostomy per surgeon note. TPN d/w pharmacy. Recommend: 1. Continuous 2:1 TPN using Clinimix E 5/20 at 70 ml/hr goal rate. 2. Separate 20% intralipids to run for 12 hours daily at 7 ml/hr to provide total 17grams lipids. 3. TPN and Intralipids will provide total 1848 calories, total 84 grams protein, total 1646 non-protein calories, and 2.81 mg/kg/min CHO loading, .79 g/kg fat (9% of calories, will meet EFA needs). 4. daily wts; PALB Q / 5. Monitor for PN increase to 105ml/hr goal once electrolytes/GLU are more stable Addendum: 10/14/19 at [address] Amended: Links added.
[2019-10-14] MEDS ORDERED: sodium phosphate inj. 15 MMOL in dextrose 5%-water 150 ML IV PRN (12:35)
[2019-10-14] MEDS ORDERED: sodium phosphate inj. 30 MMOL in dextrose 5%-water 250 ML IV PRN (12:35)
[2019-10-14] MEDS ORDERED: Neutra Phos packet PO PRN (12:35)
[2019-10-14] MEDS: potassium Cl 20mEq/100mL bag 100 ML IV PRN ×2 (13:04→13:05)
[2019-10-14] MEDS ORDERED: CALCIUM IV SCH (14:00)
[2019-10-14] MEDS ORDERED: [UNRECOGNIZED DRUG - OTHER] IV SCH (14:00)
[2019-10-14] MEDS ORDERED: LYTES IV SCH (14:00)
[2019-10-14] MEDS ORDERED: DEXT IV SCH (14:00)
[2019-10-14] MEDS ORDERED: TRACE ELEMENT IV SCH (14:00)
[2019-10-14] MEDS: insulin glargine (Lantus) pen - multi-dose SQ SCH (20:11)
[2019-10-14] MEDS: morphine 2 MG/ML inj. syringe IV PRN (23:13)
[2019-10-15] VITALS (27 sets, daily range): BP systolic 107–176; BP diastolic 47–99
--- NOTE | 2019-10-15 00:30 | NUR ---
in drawing am labs, all IV's stopped, i flushed with 20 ml and wasted 20 ml because the tpn is running through this line. ulises was d/c'd at beginning of shift because it no longer worked - flat wave, no blood return, site mildly puffy.
[2019-10-15 00:53] LABS: BASOPHILS % (AUTO) 0.2 % (0-1); EOSINOPHILS % (AUTO) 0.4 % (0-6); HEMATOCRIT 25.8 % (35.0-45.0); HEMOGLOBIN 8.8 g/dl (12.0-16.0); LYMPHOCYTES # (AUTO) 0.9 X10'3 (1.1-4.8); LYMPHOCYTES % (AUTO) 10.2 % (21-51); MEAN CORPUSCULAR HEMOGLOBIN 29.3 PG (27.0-31.0); MEAN CORPUSCULAR HGB CONC 33.9 g/dL (33.0-36.5); MEAN CORPUSCULAR VOLUME 86.3 FL (78-98); MEAN PLATELET VOLUME 7.9 FL (7.4-10.4); MONOCYTES # (AUTO) 0.5 X10'3 (0-0.9); MONOCYTES % (AUTO) 6.1 % (2-12); NEUTROPHILS # (AUTO) 7.2 X10'3 (1.8-7.7); NEUTROPHILS % (AUTO) 83.1 % (42-75); PLATELET COUNT 262 X10'3 (140-440); RED CELL DISTRIBUTION WIDTH 20.2 % (11.5-14.5); WHITE BLOOD COUNT 8.7 X10'3 (4.5-11.0)
[2019-10-15 01:09] LABS: ALBUMIN 1.4 G/DL (3.4-5.0); ANION GAP 10 (8-16); BLOOD UREA NITROGEN 11 MG/DL (7-18); BUN/CREATININE RATIO 20.4 (6.6-38.0); CALCIUM 7.7 MG/DL (8.5-10.1); CHLORIDE 108 MMOL/L (99-107); CREATININE 0.54 MG/DL (0.40-0.90); GLUCOSE 218 MG/DL (70-104); PHOSPHORUS 1.9 MG/DL (2.3-4.5); SODIUM 139 MMOL/L (135-145); TOTAL CARBON DIOXIDE 21.3 MMOL/L (24-32); eGFR > 90 ML/MIN
[2019-10-15 01:11] LABS: POTASSIUM 2.9 MMOL/L (3.5-5.1)
[2019-10-15] MEDS: potassium Cl 20mEq/100mL bag 100 ML IV PRN ×4 (01:32→05:34)
[2019-10-15] MEDS: mineral oil/petrolatum ophthal oint EACHEYE SCH ×4 (01:34→20:20)
[2019-10-15] MEDS: insulin regular, human vial - multi-dose SQ SCH ×4 (01:45→22:05)
[2019-10-15 02:54] LABS: PARTIAL THROMBOPLASTIN TIME 37 SECONDS (22-32)
[2019-10-15] MEDS: albuterol 2.5 MG/3 ML nebule NEB SCH ×4 (03:34→21:27)
[2019-10-15 04:29] LABS: PLATELET ESTIMATE NORMAL
[2019-10-15 04:30] LABS: ANISOCYTOSIS 3+
[2019-10-15 04:34] LABS: MAGNESIUM 2.2 MG/DL (1.5-2.4)
[2019-10-15 04:46] LABS: ABG BASE EXCESS -5.9 mmol/L (-2.0-3.0); ABG HCO3 17.6 mmol/L (22.0-26.0); ABG OXYGEN SATURATION 97.4 % (95-98); ABG PH (T) 7.415 (7.350-7.450); ABG PO2 (T) 100.9 mmHg (83-108); ALLEN'S TEST Positive; FCOHb 0.3 % (0.5-1.5); FMetHb 0.3 % (0.3-1.12); FO2Hb 96.8 % (94-100); MINUTE VOLUME 9 L/min; PEEP 5 cm H2O; RESPIRATORY RATE 12 b/min; RESPIRATORY RATE (OBSERVED) 13 b/min; TIDAL VOLUME 650 mL; TOTAL HEMOGLOBIN 10.3 G/dl (12.0-16.0)
[2019-10-15] MEDS: sodium chloride 0.45% 1,000 ML IV SCH ×2 (05:34→15:45)
[2019-10-15] MEDS: fluconazole/NS 400mg/200ml bag 200 ML IV SCH (07:05)
[2019-10-15] MEDS: heparin, porcine 5000 units/ml vial SQ SCH ×2 (08:00→20:21)
[2019-10-15] MEDS: folic acid 1mg tablet PO SCH (08:07)
[2019-10-15] MEDS: famotidine/PF 10 mg/ml inj IV SCH ×2 (08:07→20:20)
[2019-10-15] MEDS: lactobacillus rhamnosus 10,000 MMU CELLS/CAPSULE PO SCH ×2 (08:07→20:00)
[2019-10-15] MEDS: Dakins solution (1/4 strength) 473ml solution TP SCH ×2 (08:08→20:21)
[2019-10-15] MEDS: vitamin D (cholecalciferol) 1,000 unit tablet PO SCH (08:08)
[2019-10-15] MEDS: lisinopril 10 MG tablet PO SCH (08:08)
[2019-10-15] MEDS: linezolid 600mg/300ml PREMIX 300 ML IV SCH ×2 (09:14→20:20)
[2019-10-15] MEDS: NORMAL SALINE IV SCH (09:42)
[2019-10-15] MEDS: MIDAZOLAM IV SCH (09:42)
[2019-10-15] MEDS: morphine/NS 100mg/100ml bag 100 ML IV SCH (09:45)
--- NOTE | 2019-10-15 09:56 | NUR ---
K+ drawn after replacing with 80meq.
[2019-10-15] MEDS: MVI, adult No.4 with vit. K 10 ML in normal saline 500ml IV soln 500 ML IV SCH ×2 (10:58)
[2019-10-15] MEDS: DEXT IV SCH ×2 (11:54→22:06)
[2019-10-15] MEDS: TRACE ELEMENT IV SCH ×2 (11:54→22:06)
[2019-10-15] MEDS: CALCIUM IV SCH ×2 (11:54→22:06)
[2019-10-15] MEDS: LYTES IV SCH ×2 (11:54→22:06)
[2019-10-15] MEDS: [UNRECOGNIZED DRUG - OTHER] IV SCH ×2 (11:54→22:06)
--- NOTE | 2019-10-15 12:01 | NUR ---
F/u: Licensed Embalmer Supervisor jose manuel w/ TPN increase for additional protein. New TPN recs below; RD collaborated w/ clinical pharmacist and notified RN regarding potential for refeeding given GLU elevation and pt still receiving K/Phos replacements since PN initiation. Will monitor for PN tolerance; unfortunately cannot meet needs without fluid overloading given pt high protein needs, high dex formulary, and unable to make custom PN at this time. Malnutrition consult: Pt has no visible signs of muscle/fat wasting, trace edema, no significant wt loss hx, and does not meet minimum malnutrition criteria at this time. New bed scale wt per RN today 113kg though pillows and other materials on bed so original 106kg stated wt likely accurate. GLU jumped to 423 on hyperglycemia protocol w/ TPN currently at goal. Phos 2.1 and Mg 1.3 likely from combination TPN and GLU elevation; to receive replacement per protocol on electrolyte-containing PN. Pt will likely need increase in TPN goal rate in order to better meet nutrition support needs in critical illness. Unable to fully meet protein needs without volume overload since cannot make custom TPNs and current high dextrose TPN formulary at this time. Updated Recs below; will recommend advancement once electrolytes are more stable and monitor for PN tolerance. Recommend: 1. Continuous 2:1 TPN using Clinimix E /20 at 105ml/hr goal rate. 2. Separate 20% intralipids to run for 12 hours daily at 7 ml/hr to provide total 17grams lipids. 3. TPN and Intralipids will provide: 2388 total kcals, 126gAA, 1884 non-protein kcals, 504gDEX (3.30mg/kg/min), and .79 g/kg fat (9% of calories, will meet EFA needs). 4. daily wts; PALB Q 5. Monitor for PN tolerance and signs of refeeding; K/Mg/Phos replacement per protocol Addendum: 01/20/20 at [address] Amended: Links added.
[2019-10-15 12:06] LABS: BASOPHILS % (AUTO) 0.2 % (0-1); EOSINOPHILS % (AUTO) 0.4 % (0-6); LYMPHOCYTES # (AUTO) 0.9 X10'3 (1.1-4.8); MEAN PLATELET VOLUME 7.8 FL (7.4-10.4); MONOCYTES # (AUTO) 0.6 X10'3 (0-0.9); NEUTROPHILS # (AUTO) 6.9 X10'3 (1.8-7.7); NEUTROPHILS % (AUTO) 81.4 % (42-75); PLATELET COUNT 253 X10'3 (140-440); WHITE BLOOD COUNT 8.5 X10'3 (4.5-11.0)
[2019-10-15 12:32] LABS: HEMATOCRIT 25.1 % (35.0-45.0); HEMOGLOBIN 8.5 g/dl (12.0-16.0); MEAN CORPUSCULAR HEMOGLOBIN 28.8 PG (27.0-31.0); MEAN CORPUSCULAR HGB CONC 33.9 g/dL (33.0-36.5); RED BLOOD COUNT 2.95 X10'6 (4.20-5.60)
[2019-10-15 12:56] LABS: ANISOCYTOSIS 3+; PLATELET ESTIMATE NORMAL; TOTAL CELLS COUNTED 100
[2019-10-15] MEDS: acetaminophen 325mg tablet PO PRN (13:11)
[2019-10-15] MEDS: piperacillin/tazo 3.375gm/50ml 50 ML IV SCH (15:48)
--- NOTE | 2019-10-15 17:22 | NUR ---
Dr. De La Rosa here to see pt. Stated he wants pt. to have a CT scan tomorrow. RNs showed wound to Dr. De La Rosa.
[2019-10-15] MEDS: fat emulsion IV bag 250 ML IV SCH (20:20)
[2019-10-15 21:41] LABS: ALBUMIN 1.2 G/DL (3.4-5.0); ANION GAP 4 (8-16); BLOOD UREA NITROGEN 12 MG/DL (7-18); BUN/CREATININE RATIO 22.6 (6.6-38.0); CALCIUM 7.7 MG/DL (8.5-10.1); CHLORIDE 109 MMOL/L (99-107); CREATININE 0.53 MG/DL (0.40-0.90); GLUCOSE 150 MG/DL (70-104); MAGNESIUM 1.8 MG/DL (1.5-2.4); PHOSPHORUS 3.1 MG/DL (2.3-4.5); POTASSIUM 4.5 MMOL/L (3.5-5.1); SODIUM 137 MMOL/L (135-145); TOTAL CARBON DIOXIDE 24.4 MMOL/L (24-32); eGFR > 90 ML/MIN
[2019-10-15] MEDS: insulin glargine (Lantus) pen - multi-dose SQ SCH (22:03)
[2019-10-16] VITALS (28 sets, daily range): BP systolic 99–144; BP diastolic 52–80
[2019-10-16] MEDS: piperacillin/tazo 3.375gm/50ml 50 ML IV SCH ×3 (00:12→17:06)
[2019-10-16] MEDS: acetaminophen 325mg tablet PO PRN (00:51)
[2019-10-16] MEDS: mineral oil/petrolatum ophthal oint EACHEYE SCH ×4 (02:00→20:29)
[2019-10-16] MEDS: albuterol 2.5 MG/3 ML nebule NEB SCH ×3 (02:26→19:06)
[2019-10-16 03:10] LABS: ALBUMIN 1.1 G/DL (3.4-5.0); ANION GAP 8 (8-16); BLOOD UREA NITROGEN 12 MG/DL (7-18); BUN/CREATININE RATIO 22.6 (6.6-38.0); CALCIUM 7.4 MG/DL (8.5-10.1); CHLORIDE 107 MMOL/L (99-107); CREATININE 0.53 MG/DL (0.40-0.90); GLUCOSE 84 MG/DL (70-104); MAGNESIUM 1.7 MG/DL (1.5-2.4); PHOSPHORUS 2.9 MG/DL (2.3-4.5); POTASSIUM 4.1 MMOL/L (3.5-5.1); SODIUM 136 MMOL/L (135-145); TOTAL CARBON DIOXIDE 21.1 MMOL/L (24-32); eGFR > 90 ML/MIN
[2019-10-16 03:14] LABS: BASOPHILS % (AUTO) 0.4 % (0-1); EOSINOPHILS # (AUTO) 0.1 X10'3 (0-0.9); EOSINOPHILS % (AUTO) 0.8 % (0-6); HEMATOCRIT 25.7 % (35.0-45.0); HEMOGLOBIN 8.6 g/dl (12.0-16.0); LYMPHOCYTES # (AUTO) 1.2 X10'3 (1.1-4.8); LYMPHOCYTES % (AUTO) 13.9 % (21-51); MEAN CORPUSCULAR HGB CONC 33.3 g/dL (33.0-36.5); MEAN PLATELET VOLUME 7.7 FL (7.4-10.4); MONOCYTES # (AUTO) 0.7 X10'3 (0-0.9); MONOCYTES % (AUTO) 8.5 % (2-12); NEUTROPHILS # (AUTO) 6.6 X10'3 (1.8-7.7); NEUTROPHILS % (AUTO) 76.4 % (42-75); PLATELET COUNT 240 X10'3 (140-440); RED BLOOD COUNT 2.95 X10'6 (4.20-5.60); RED CELL DISTRIBUTION WIDTH 20.9 % (11.5-14.5); WHITE BLOOD COUNT 8.6 X10'3 (4.5-11.0)
[2019-10-16] MEDS: sodium chloride 0.45% 1,000 ML IV SCH (04:14)
[2019-10-16 04:25] LABS: ABG BASE EXCESS -4.5 mmol/L (-2.0-3.0); ABG HCO3 18.2 mmol/L (22.0-26.0); ABG OXYGEN SATURATION 98.4 % (95-98); ABG PCO2 (T) 27.2 mmHg (35.0-45.0); ABG PH (T) 7.447 (7.350-7.450); ABG PO2 (T) 124.5 mmHg (83-108); ALLEN'S TEST Positive; FCOHb 0.3 % (0.5-1.5); FO2Hb 98.1 % (94-100); MINUTE VOLUME 12 L/min; PEEP 5 cm H2O; RESPIRATORY RATE 12 b/min; RESPIRATORY RATE (OBSERVED) 20 b/min; TIDAL VOLUME 650 mL; TOTAL HEMOGLOBIN 10.1 G/dl (12.0-16.0)
[2019-10-16 05:20] LABS: ANISOCYTOSIS 3+; PLATELET ESTIMATE NORMAL; SPHEROCYTES FEW
[2019-10-16] MEDS: linezolid 600mg/300ml PREMIX 300 ML IV SCH ×2 (06:47→20:30)
[2019-10-16] MEDS: [UNRECOGNIZED DRUG - OTHER] IV SCH ×2 (06:51→17:06)
[2019-10-16] MEDS: TRACE ELEMENT IV SCH ×2 (06:51→17:06)
[2019-10-16] MEDS: CALCIUM IV SCH ×2 (06:51→17:06)
[2019-10-16] MEDS: LYTES IV SCH ×2 (06:51→17:06)
[2019-10-16] MEDS: DEXT IV SCH ×2 (06:51→17:06)
[2019-10-16] MEDS: insulin regular, human vial - multi-dose SQ SCH ×2 (07:20→13:26)
[2019-10-16] MEDS: diatr meglu/diatrizoate 30ml oral sol.-(3 dose) bottle PO SCH ×3 (07:21→15:14)
[2019-10-16] MEDS: heparin, porcine 5000 units/ml vial SQ SCH ×2 (07:21→20:31)
[2019-10-16] MEDS: famotidine/PF 10 mg/ml inj IV SCH ×2 (07:21→20:30)
[2019-10-16] MEDS: vitamin D (cholecalciferol) 1,000 unit tablet PO SCH (07:22)
[2019-10-16] MEDS: lactobacillus rhamnosus 10,000 MMU CELLS/CAPSULE PO SCH ×2 (07:22→20:00)
[2019-10-16] MEDS: lisinopril 10 MG tablet PO SCH (07:22)
[2019-10-16] MEDS: folic acid 1mg tablet PO SCH (07:23)
[2019-10-16] MEDS: Dakins solution (1/4 strength) 473ml solution TP SCH ×2 (07:23→20:31)
[2019-10-16] MEDS: fluconazole/NS 400mg/200ml bag 200 ML IV SCH (08:31)
[2019-10-16] MEDS: NORMAL SALINE IV SCH (08:47)
[2019-10-16] MEDS: MIDAZOLAM IV SCH (08:47)
[2019-10-16] MEDS: MVI, adult No.4 with vit. K 10 ML in normal saline 500ml IV soln 500 ML IV SCH ×2 (09:50)
--- NOTE | 2019-10-16 11:27 | NUR ---
F/u: Pt tolerating new TPN goal rate and no signs of refeeding. Additional fluids held given TPN per MD. Pending CAT scan to determine if to return to OR per MD. PALB pending today. Will continue to monitor. F/u: Cash Accounting Clerk jose manuel w/ TPN increase for additional protein. New TPN recs below; RD collaborated w/ clinical pharmacist and notified RN regarding potential for refeeding given GLU elevation and pt still receiving K/Phos replacements since PN initiation. Will monitor for PN tolerance; unfortunately cannot meet needs without fluid overloading given pt high protein needs, high dex formulary, and unable to make custom PN at this time. Recommend: 1. Continuous 2:1 TPN using Clinimix E 02/12 at 105ml/hr goal rate. 2. Separate 20% intralipids to run for 12 hours daily at 7 ml/hr to provide total 17grams lipids. 3. TPN and Intralipids will provide: 2388 total kcals, 126gAA, 1884 non-protein kcals, 504gDEX (3.30mg/kg/min), and .79 g/kg fat (9% of calories, will meet EFA needs). 4. daily wts; PALB Q / 5. Monitor for PN tolerance and signs of refeeding; K/Mg/Phos replacement per protocol Addendum: 10/16/19 at [address] Amended: Links added.
--- NOTE | 2019-10-16 11:30 | NUR ---
Pt. to have CT scan this afternoon. Giving pt. contrast via OGT. VSS.
[2019-10-16 14:28] LABS: PREALBUMIN 10.9 MG/DL (19-36)
--- NOTE | 2019-10-16 15:49 | NUR ---
Back from CT scan. HR 140s.
[2019-10-16] MEDS: morphine/NS 100mg/100ml bag 100 ML IV SCH (17:06)
--- NOTE | 2019-10-16 18:30 | NUR ---
Report received from previous nurse team Mary Jane OSEI and FARNAZ George. Patient has VSS and is comfortable and in no distress.
[2019-10-16] MEDS: fat emulsion IV bag 250 ML IV SCH (20:30)
[2019-10-16 21:13] LABS: ANION GAP 5 (8-16); BLOOD UREA NITROGEN 12 MG/DL (7-18); BUN/CREATININE RATIO 21.8 (6.6-38.0); CALCIUM 7.8 MG/DL (8.5-10.1); CHLORIDE 108 MMOL/L (99-107); CREATININE 0.55 MG/DL (0.40-0.90); GLUCOSE 83 MG/DL (70-104); MAGNESIUM 1.6 MG/DL (1.5-2.4); PHOSPHORUS 3.7 MG/DL (2.3-4.5); POTASSIUM 4.3 MMOL/L (3.5-5.1); SODIUM 137 MMOL/L (135-145); TOTAL CARBON DIOXIDE 23.8 MMOL/L (24-32); eGFR > 90 ML/MIN
[2019-10-16] MEDS: insulin glargine (Lantus) pen - multi-dose SQ SCH (21:50)
[2019-10-17] VITALS (24 sets, daily range): BP systolic 109–157; BP diastolic 53–77
[2019-10-17] MEDS: piperacillin/tazo 3.375gm/50ml 50 ML IV SCH ×3 (00:12→15:01)
--- NOTE | 2019-10-17 00:30 | NUR ---
4 hr shift update - PAtient has been stable. Eusebio does try to open her eyes when i call her but no command. WD to pain. Patients blood glucoses have been trending in the 70's the past few draws. I gave patient her lantus dose minus 10 % per protocol for a total of 11 units Lantus. Since her BG was 76 confirmed by a BMP draw to the lab, I have not covered patient with short acting insulin. I will check the BG again at 2. Patient will be downgraded to a level 5 Since i sent a BMP, i confirmed all electrolytes are within accepted parameters. Dressing change due near 0200. Morphine has been running at 4 mg/hr and patient is comfortable. Versed at 2 mg/hr. I updated patient sister over the phone with a brief summary of status. Will continue to monitor
[2019-10-17] MEDS: mineral oil/petrolatum ophthal oint EACHEYE SCH ×4 (01:55→19:54)
[2019-10-17] MEDS: LYTES IV SCH ×3 (01:55→21:17)
[2019-10-17] MEDS: CALCIUM IV SCH ×3 (01:55→21:17)
[2019-10-17] MEDS: TRACE ELEMENT IV SCH ×3 (01:55→21:17)
[2019-10-17] MEDS: DEXT IV SCH ×3 (01:55→21:17)
[2019-10-17] MEDS: [UNRECOGNIZED DRUG - OTHER] IV SCH ×3 (01:55→21:17)
[2019-10-17] MEDS: albuterol 2.5 MG/3 ML nebule NEB SCH ×4 (02:29→19:03)
[2019-10-17 03:50] LABS: BASOPHILS % (AUTO) 0.5 % (0-1); EOSINOPHILS # (AUTO) 0.2 X10'3 (0-0.9); EOSINOPHILS % (AUTO) 2.2 % (0-6); LYMPHOCYTES # (AUTO) 1.6 X10'3 (1.1-4.8); LYMPHOCYTES % (AUTO) 17.7 % (21-51); MEAN CORPUSCULAR HEMOGLOBIN 28.6 PG (27.0-31.0); MEAN CORPUSCULAR HGB CONC 33.1 g/dL (33.0-36.5); MEAN CORPUSCULAR VOLUME 86.5 FL (78-98); MEAN PLATELET VOLUME 7.5 FL (7.4-10.4); MONOCYTES % (AUTO) 10.5 % (2-12); NEUTROPHILS # (AUTO) 6.4 X10'3 (1.8-7.7); NEUTROPHILS % (AUTO) 69.1 % (42-75); PLATELET COUNT 200 X10'3 (140-440); RED BLOOD COUNT 2.78 X10'6 (4.20-5.60); RED CELL DISTRIBUTION WIDTH 20.9 % (11.5-14.5); WHITE BLOOD COUNT 9.2 X10'3 (4.5-11.0)
[2019-10-17 03:53] LABS: ANION GAP 7 (8-16); BLOOD UREA NITROGEN 14 MG/DL (7-18); CALCIUM 7.8 MG/DL (8.5-10.1); CHLORIDE 107 MMOL/L (99-107); CREATININE 0.61 MG/DL (0.40-0.90); GLUCOSE 126 MG/DL (70-104); MAGNESIUM 1.6 MG/DL (1.5-2.4); PHOSPHORUS 4.1 MG/DL (2.3-4.5); POTASSIUM 4.3 MMOL/L (3.5-5.1); SODIUM 137 MMOL/L (135-145); TOTAL CARBON DIOXIDE 23.2 MMOL/L (24-32); eGFR > 90 ML/MIN
[2019-10-17 05:26] LABS: ANISOCYTOSIS 3+; PLATELET ESTIMATE NORMAL; SPHEROCYTES FEW
[2019-10-17 05:27] LABS: ELLIPTOCYTES FEW; POLYCHROMASIA FEW
--- NOTE | 2019-10-17 06:30 | NUR ---
Patient in room CICU 2007. I have received report from Misael OSEI and had the opportunity to ask questions and assume patient care.
[2019-10-17] MEDS: lactobacillus rhamnosus 10,000 MMU CELLS/CAPSULE PO SCH ×2 (07:46→20:04)
[2019-10-17] MEDS: famotidine/PF 10 mg/ml inj IV SCH ×2 (07:47→19:55)
[2019-10-17] MEDS: lisinopril 10 MG tablet PO SCH (07:47)
[2019-10-17] MEDS: vitamin D (cholecalciferol) 1,000 unit tablet PO SCH (07:47)
[2019-10-17] MEDS: heparin, porcine 5000 units/ml vial SQ SCH ×2 (07:47→19:56)
[2019-10-17] MEDS: fluconazole/NS 400mg/200ml bag 200 ML IV SCH (07:48)
[2019-10-17] MEDS: folic acid 1mg tablet PO SCH (07:48)
[2019-10-17] MEDS: linezolid 600mg/300ml PREMIX 300 ML IV SCH ×2 (07:48→19:55)
[2019-10-17] MEDS: Dakins solution (1/4 strength) 473ml solution TP SCH ×2 (08:57→20:03)
[2019-10-17] MEDS: furosemide 40mg/4ml inj IV SCH ×2 (09:01→19:55)
--- NOTE | 2019-10-17 09:59 | NUR ---
Dr. Carney at bedside. notified MD of drainage in old ostomy site. no new orders received.
[2019-10-17] MEDS: MVI, adult No.4 with vit. K 10 ML in normal saline 500ml IV soln 500 ML IV SCH ×2 (12:31)
[2019-10-17] MEDS: insulin regular, human vial - multi-dose SQ SCH ×2 (13:37→21:22)
[2019-10-17] MEDS ORDERED: fat emulsion IV bag 250 ML IV SCH (14:50)
[2019-10-17] MEDS: MIDAZOLAM IV SCH (15:00)
[2019-10-17] MEDS: NORMAL SALINE IV SCH (15:00)
--- NOTE | 2019-10-17 18:33 | NUR ---
Problems reprioritized. Patient report given, questions answered & plan of care reviewed with Teresa OSEI.
[2019-10-17] MEDS: fat emulsion IV bag 250 ML IV SCH (20:00)
[2019-10-17] MEDS: insulin glargine (Lantus) pen - multi-dose SQ SCH (21:23)
[2019-10-18] VITALS (25 sets, daily range): BP systolic 112–171; BP diastolic 55–95
[2019-10-18] MEDS: piperacillin/tazo 3.375gm/50ml 50 ML IV SCH ×3 (00:30→16:11)
[2019-10-18] MEDS: morphine/NS 100mg/100ml bag 100 ML IV SCH (00:33)
[2019-10-18] MEDS: mineral oil/petrolatum ophthal oint EACHEYE SCH ×4 (02:33→21:10)
[2019-10-18] MEDS: insulin regular, human vial - multi-dose SQ SCH ×4 (02:35→21:31)
[2019-10-18] MEDS: albuterol 2.5 MG/3 ML nebule NEB SCH ×4 (02:51→19:30)
[2019-10-18 05:15] LABS: BASOPHILS % (AUTO) 0.5 % (0-1); EOSINOPHILS # (AUTO) 0.1 X10'3 (0-0.9); EOSINOPHILS % (AUTO) 2.1 % (0-6); LYMPHOCYTES % (AUTO) 14.8 % (21-51); MEAN CORPUSCULAR HEMOGLOBIN 28.6 PG (27.0-31.0); MEAN CORPUSCULAR HGB CONC 33.3 g/dL (33.0-36.5); MEAN CORPUSCULAR VOLUME 85.9 FL (78-98); MONOCYTES # (AUTO) 0.6 X10'3 (0-0.9); MONOCYTES % (AUTO) 9.9 % (2-12); NEUTROPHILS # (AUTO) 4.8 X10'3 (1.8-7.7); NEUTROPHILS % (AUTO) 72.7 % (42-75); PLATELET COUNT 166 X10'3 (140-440); RED BLOOD COUNT 2.51 X10'6 (4.20-5.60); RED CELL DISTRIBUTION WIDTH 20.6 % (11.5-14.5); WHITE BLOOD COUNT 6.6 X10'3 (4.5-11.0)
[2019-10-18 05:27] LABS: HEMATOCRIT 21.6 % (35.0-45.0); HEMOGLOBIN 7.2 g/dl (12.0-16.0)
[2019-10-18 05:35] LABS: ALANINE AMINOTRANSFERASE 18 U/L (12-78); ALBUMIN/GLOBULIN RATIO 0.2 (1.1-1.5); ALKALINE PHOSPHATASE 94 IU/L (46-116); ANION GAP 7 (8-16); ASPARTATE AMINO TRANSFERASE 18 U/L (10-37); BILIRUBIN,TOTAL 0.2 MG/DL (0.1-1.0); BLOOD UREA NITROGEN 15 MG/DL (7-18); BUN/CREATININE RATIO 22.4 (6.6-38.0); CALCIUM 8.1 MG/DL (8.5-10.1); CHLORIDE 100 MMOL/L (99-107); CREATININE 0.67 MG/DL (0.40-0.90); GLUCOSE 278 MG/DL (70-104); MAGNESIUM 1.4 MG/DL (1.5-2.4); PHOSPHORUS 3.8 MG/DL (2.3-4.5); POTASSIUM 3.9 MMOL/L (3.5-5.1); SODIUM 134 MMOL/L (135-145); TOTAL CARBON DIOXIDE 27.1 MMOL/L (24-32); TOTAL PROTEIN 5.3 G/DL (6.4-8.2); eGFR 89 ML/MIN
--- NOTE | 2019-10-18 06:36 | NUR ---
Patient in room CICU 2008. I have received report from Teresa OSEI and had the opportunity to ask questions and assume patient care.
[2019-10-18 06:50] LABS: ANISOCYTOSIS 3+; LARGE PLATELETS FEW; PLATELET ESTIMATE NORMAL; POLYCHROMASIA FEW; TOTAL CELLS COUNTED 100
[2019-10-18] MEDS: famotidine/PF 10 mg/ml inj IV SCH ×2 (07:45→21:01)
[2019-10-18] MEDS: furosemide 40mg/4ml inj IV SCH (07:45)
[2019-10-18] MEDS: heparin, porcine 5000 units/ml vial SQ SCH ×2 (07:46→21:12)
[2019-10-18] MEDS: lactobacillus rhamnosus 10,000 MMU CELLS/CAPSULE PO SCH ×2 (07:46→21:01)
[2019-10-18] MEDS: vitamin D (cholecalciferol) 1,000 unit tablet PO SCH (07:46)
[2019-10-18] MEDS: folic acid 1mg tablet PO SCH (07:46)
[2019-10-18] MEDS: lisinopril 10 MG tablet PO SCH (07:47)
[2019-10-18] MEDS: fluconazole/NS 400mg/200ml bag 200 ML IV SCH (07:48)
[2019-10-18] MEDS: linezolid 600mg/300ml PREMIX 300 ML IV SCH ×2 (07:48→20:00)
[2019-10-18] MEDS: CALCIUM IV SCH ×2 (08:19→16:27)
[2019-10-18] MEDS: TRACE ELEMENT IV SCH ×2 (08:19→16:27)
[2019-10-18] MEDS: DEXT IV SCH ×2 (08:19→16:27)
[2019-10-18] MEDS: [UNRECOGNIZED DRUG - OTHER] IV SCH ×2 (08:19→16:27)
[2019-10-18] MEDS: LYTES IV SCH ×2 (08:19→16:27)
[2019-10-18] MEDS: Dakins solution (1/4 strength) 473ml solution TP SCH ×2 (08:22→21:13)
--- NOTE | 2019-10-18 11:00 | NUR ---
turned all sedation off to see if pt will follow commands. will continue to monitor
[2019-10-18] MEDS: magnesium 2GM in 50ml NS 50 ML IV PRN (11:45)
[2019-10-18] MEDS: MVI, adult No.4 with vit. K 10 ML in normal saline 500ml IV soln 500 ML IV SCH ×2 (11:46)
--- NOTE | 2019-10-18 14:57 | NUR ---
Reassessment: Pt continues to tolerate TPN at goal rate of 105ml/hr with intralipids at 7ml/hr for 12 hours. Per documentation, pt did not receive intralipids last night 10/17, d/w bedside RN and pharmacist. Recommended to RN for new TG lab. CT scan performed on pt, ileostomy is working fairly well with no plans for reoperation per MD note. Pt with 125ml stool output on 10/18 and no flatus and hypoactive bowel sounds. Pt expected to be extubated tomorrow per ship steward. When extubated and when ok by surgeon to advance diet, recommend advancing to a low fiber diet as medically indicated. Will continue to monitor. Recommend: 1. Continuous 2:1 TPN using Clinimix E 02/12 at 105ml/hr goal rate. 2. Separate 20% intralipids to run for 12 hours daily at 7 ml/hr to provide total 17grams lipids. 3. TPN and Intralipids will provide: 2388 total kcals, 126gAA, 1884 non-protein kcals, 504gDEX (3.30mg/kg/min), and .79 g/kg fat (9% of calories, will meet EFA needs). 4. daily wts; PALB Q / 5. Monitor for PN tolerance and signs of refeeding; K/Mg/Phos replacement per protocol 6. IF extubated, recommend advancing to low fiber diet as medically indicated. 7. bowel care as needed Addendum: 10/18/19 at 1458 by Wing Margaret THOMAS Amended: Links added. Addendum: 10/18/19 at [address] WILLIAM Martinez
--- NOTE | 2019-10-18 18:30 | NUR ---
Patient in room CICU 2007. I have received report from Bowen OSEI. and had the opportunity to ask questions and assume patient care.
--- NOTE | 2019-10-18 18:36 | NUR ---
Problems reprioritized. Patient report given, questions answered & plan of care reviewed with Elvi OSEI.
[2019-10-18] MEDS: fat emulsion IV bag 250 ML IV SCH (20:00)
[2019-10-18] MEDS: insulin glargine (Lantus) pen - multi-dose SQ SCH (21:33)
[2019-10-18] MEDS: morphine 2 MG/ML inj. syringe IV PRN (22:49)
[2019-10-19] VITALS (23 sets, daily range): BP systolic 108–174; BP diastolic 56–90
[2019-10-19] MEDS: piperacillin/tazo 3.375gm/50ml 50 ML IV SCH ×3 (00:29→15:42)
[2019-10-19] MEDS: LYTES IV SCH ×3 (02:40→20:24)
[2019-10-19] MEDS: DEXT IV SCH ×3 (02:40→20:24)
[2019-10-19] MEDS: CALCIUM IV SCH ×3 (02:40→20:24)
[2019-10-19] MEDS: TRACE ELEMENT IV SCH ×3 (02:40→20:24)
[2019-10-19] MEDS: [UNRECOGNIZED DRUG - OTHER] IV SCH ×3 (02:40→20:24)
[2019-10-19] MEDS: mineral oil/petrolatum ophthal oint EACHEYE SCH ×4 (02:41→20:00)
[2019-10-19] MEDS: insulin regular, human vial - multi-dose SQ SCH ×3 (03:01→20:21)
[2019-10-19] MEDS: albuterol 2.5 MG/3 ML nebule NEB SCH ×4 (03:10→19:05)
[2019-10-19 03:49] LABS: BASOPHILS # (AUTO) 0.1 X10'3 (0-0.2); BASOPHILS % (AUTO) 0.8 % (0-1); EOSINOPHILS # (AUTO) 0.2 X10'3 (0-0.9); EOSINOPHILS % (AUTO) 3.1 % (0-6); HEMATOCRIT 22.1 % (35.0-45.0); HEMOGLOBIN 7.4 g/dl (12.0-16.0); LYMPHOCYTES # (AUTO) 0.9 X10'3 (1.1-4.8); LYMPHOCYTES % (AUTO) 12.6 % (21-51); MEAN CORPUSCULAR HEMOGLOBIN 28.8 PG (27.0-31.0); MEAN CORPUSCULAR HGB CONC 33.5 g/dL (33.0-36.5); MEAN CORPUSCULAR VOLUME 85.9 FL (78-98); MEAN PLATELET VOLUME 8.5 FL (7.4-10.4); MONOCYTES # (AUTO) 0.8 X10'3 (0-0.9); MONOCYTES % (AUTO) 11.3 % (2-12); NEUTROPHILS # (AUTO) 4.9 X10'3 (1.8-7.7); NEUTROPHILS % (AUTO) 72.2 % (42-75); PLATELET COUNT 198 X10'3 (140-440); RED BLOOD COUNT 2.57 X10'6 (4.20-5.60); RED CELL DISTRIBUTION WIDTH 20.2 % (11.5-14.5); WHITE BLOOD COUNT 6.8 X10'3 (4.5-11.0)
[2019-10-19 04:04] LABS: ANION GAP 4 (8-16); BLOOD UREA NITROGEN 15 MG/DL (7-18); BUN/CREATININE RATIO 26.3 (6.6-38.0); CHLORIDE 103 MMOL/L (99-107); CREATININE 0.57 MG/DL (0.40-0.90); GLUCOSE 142 MG/DL (70-104); POTASSIUM 3.8 MMOL/L (3.5-5.1); SODIUM 136 MMOL/L (135-145); TOTAL CARBON DIOXIDE 28.9 MMOL/L (24-32)
[2019-10-19 04:05] LABS: ALANINE AMINOTRANSFERASE 63 U/L (12-78); ALBUMIN 1.1 G/DL (3.4-5.0); ALBUMIN/GLOBULIN RATIO 0.2 (1.1-1.5); ALKALINE PHOSPHATASE 110 IU/L (46-116); ASPARTATE AMINO TRANSFERASE 62 U/L (10-37); BILIRUBIN,TOTAL 0.2 MG/DL (0.1-1.0); CALCIUM 8.2 MG/DL (8.5-10.1); MAGNESIUM 1.8 MG/DL (1.5-2.4); PHOSPHORUS 3.7 MG/DL (2.3-4.5); TOTAL PROTEIN 5.7 G/DL (6.4-8.2); TRIGLYCERIDES 77 MG/DL (20-135); eGFR > 90 ML/MIN
[2019-10-19 06:01] LABS: ABG BASE EXCESS 5.5 mmol/L (-2.0-3.0); ABG HCO3 29.5 mmol/L (22.0-26.0); ABG OXYGEN SATURATION 91.3 % (95-98); ABG PCO2 (T) 40.4 mmHg (35.0-45.0); ABG PH (T) 7.481 (7.350-7.450); ABG PO2 (T) 58.2 mmHg (83-108); ALLEN'S TEST POSITIVE; FCOHb 0.3 % (0.5-1.5); PATIENT TEMPERATURE 36.9; TOTAL HEMOGLOBIN 8.2 G/dl (12.0-16.0)
--- NOTE | 2019-10-19 06:28 | NUR ---
Patient in room CICU 2007. I have received report from Elvi OSEI and had the opportunity to ask questions and assume patient care.
[2019-10-19 06:38] LABS: ANISOCYTOSIS 3+; HYPOCHROMASIA 1+; PLATELET ESTIMATE NORMAL; POLYCHROMASIA 1+; ROULEAUX 1+; TOTAL CELLS COUNTED 100
[2019-10-19] MEDS: fluconazole/NS 400mg/200ml bag 200 ML IV SCH (07:57)
[2019-10-19] MEDS: vitamin D (cholecalciferol) 1,000 unit tablet PO SCH (07:58)
[2019-10-19] MEDS: linezolid 600mg/300ml PREMIX 300 ML IV SCH ×2 (07:58→20:40)
[2019-10-19] MEDS: famotidine/PF 10 mg/ml inj IV SCH ×2 (07:59→20:21)
[2019-10-19] MEDS: folic acid 1mg tablet PO SCH (07:59)
[2019-10-19] MEDS: lisinopril 10 MG tablet PO SCH (07:59)
[2019-10-19] MEDS: lactobacillus rhamnosus 10,000 MMU CELLS/CAPSULE PO SCH ×3 (07:59→20:22)
[2019-10-19] MEDS: heparin, porcine 5000 units/ml vial SQ SCH ×2 (08:00→20:23)
[2019-10-19] MEDS: furosemide 40mg/4ml inj IV SCH (08:00)
--- NOTE | 2019-10-19 08:00 | NUR ---
paged pharmacy to bring up pts humilin awaiting response.
[2019-10-19] MEDS: Dakins solution (1/4 strength) 473ml solution TP SCH ×2 (08:28→20:24)
[2019-10-19] MEDS: MVI, adult No.4 with vit. K 10 ML in normal saline 500ml IV soln 500 ML IV SCH ×2 (11:14)
[2019-10-19] MEDS: morphine 2 MG/ML inj. syringe IV PRN ×2 (11:21→22:24)
[2019-10-19] MEDS ORDERED: morphine 2 MG/ML inj. syringe IV ONE (13:45)
--- NOTE | 2019-10-19 14:00 | NUR ---
paged pharmacy for pt's humilin; awaiting response. not able to administer patients humilin
[2019-10-19] MEDS: morphine/NS 100mg/100ml bag 100 ML IV SCH (14:05)
[2019-10-19] MEDS: NORMAL SALINE IV SCH (15:00)
[2019-10-19] MEDS: MIDAZOLAM IV SCH (15:00)
--- NOTE | 2019-10-19 18:30 | NUR ---
Problems reprioritized. Patient report given, questions answered & plan of care reviewed with Elvi OSEI.
--- NOTE | 2019-10-19 18:30 | NUR ---
Patient in room CICU 2007. I have received report from Portia OSEI and had the opportunity to ask questions and assume patient care. Pt received extubated on oxygen at 2L/M via NC. Oxygen saturation is 100%. Pt is sedate & sleeping post morphine given prior to shift change. Rhythm is sinus tach HR 107, CVP is transduced via PICC line left upper arm. TPN infusing. No distress at shift change.
[2019-10-19] MEDS: insulin glargine (Lantus) pen - multi-dose SQ SCH (20:17)
[2019-10-19] MEDS: fat emulsion IV bag 250 ML IV SCH (20:26)
[2019-10-20] VITALS (24 sets, daily range): BP systolic 120–167; BP diastolic 25–76
[2019-10-20] MEDS: piperacillin/tazo 3.375gm/50ml 50 ML IV SCH ×3 (01:02→16:08)
[2019-10-20] MEDS: mineral oil/petrolatum ophthal oint EACHEYE SCH ×2 (02:00→08:00)
[2019-10-20] MEDS: insulin regular, human vial - multi-dose SQ SCH ×4 (02:05→20:49)
[2019-10-20] MEDS: albuterol 2.5 MG/3 ML nebule NEB SCH ×4 (03:06→19:26)
[2019-10-20 03:10] LABS: BASOPHILS % (AUTO) 0.7 % (0-1); EOSINOPHILS # (AUTO) 0.2 X10'3 (0-0.9); EOSINOPHILS % (AUTO) 3.4 % (0-6); HEMATOCRIT 22.6 % (35.0-45.0); HEMOGLOBIN 7.4 g/dl (12.0-16.0); LYMPHOCYTES # (AUTO) 0.7 X10'3 (1.1-4.8); LYMPHOCYTES % (AUTO) 12.4 % (21-51); MEAN CORPUSCULAR HEMOGLOBIN 28.1 PG (27.0-31.0); MEAN CORPUSCULAR HGB CONC 32.6 g/dL (33.0-36.5); MEAN CORPUSCULAR VOLUME 86.2 FL (78-98); MEAN PLATELET VOLUME 8.7 FL (7.4-10.4); MONOCYTES # (AUTO) 0.8 X10'3 (0-0.9); NEUTROPHILS # (AUTO) 3.9 X10'3 (1.8-7.7); NEUTROPHILS % (AUTO) 69.5 % (42-75); PLATELET COUNT 214 X10'3 (140-440); RED BLOOD COUNT 2.62 X10'6 (4.20-5.60); RED CELL DISTRIBUTION WIDTH 20.2 % (11.5-14.5); WHITE BLOOD COUNT 5.7 X10'3 (4.5-11.0)
[2019-10-20 03:11] LABS: ALANINE AMINOTRANSFERASE 65 U/L (12-78); ALBUMIN 1.2 G/DL (3.4-5.0); ALBUMIN/GLOBULIN RATIO 0.3 (1.1-1.5); ALKALINE PHOSPHATASE 115 IU/L (46-116); ANION GAP 6 (8-16); ASPARTATE AMINO TRANSFERASE 38 U/L (10-37); BILIRUBIN,TOTAL 0.2 MG/DL (0.1-1.0); BLOOD UREA NITROGEN 14 MG/DL (7-18); BUN/CREATININE RATIO 23.3 (6.6-38.0); CALCIUM 8.2 MG/DL (8.5-10.1); CHLORIDE 102 MMOL/L (99-107); GLUCOSE 274 MG/DL (70-104); MAGNESIUM 1.7 MG/DL (1.5-2.4); POTASSIUM 4.3 MMOL/L (3.5-5.1); SODIUM 137 MMOL/L (135-145); TOTAL CARBON DIOXIDE 28.6 MMOL/L (24-32); eGFR > 90 ML/MIN
[2019-10-20] MEDS: morphine 2 MG/ML inj. syringe IV PRN ×4 (03:25→20:52)
--- NOTE | 2019-10-20 06:30 | NUR ---
Problems reprioritized. Patient report given, questions answered & plan of care reviewed with Ginger OSEI.
--- NOTE | 2019-10-20 06:33 | NUR ---
Patient in room CICU 2007. I have received report from FARNAZ Boles and had the opportunity to ask questions and assume patient care.
[2019-10-20] MEDS: CALCIUM IV SCH ×2 (06:55→16:08)
[2019-10-20] MEDS: [UNRECOGNIZED DRUG - OTHER] IV SCH ×2 (06:55→16:08)
[2019-10-20] MEDS: TRACE ELEMENT IV SCH ×2 (06:55→16:08)
[2019-10-20] MEDS: LYTES IV SCH ×2 (06:55→16:08)
[2019-10-20] MEDS: DEXT IV SCH ×2 (06:55→16:08)
[2019-10-20] MEDS: fluconazole/NS 400mg/200ml bag 200 ML IV SCH (07:59)
[2019-10-20] MEDS: famotidine/PF 10 mg/ml inj IV SCH ×2 (07:59→20:49)
[2019-10-20] MEDS: linezolid 600mg/300ml PREMIX 300 ML IV SCH ×2 (07:59→20:50)
[2019-10-20] MEDS: folic acid 1mg tablet PO SCH (08:00)
[2019-10-20] MEDS: vitamin D (cholecalciferol) 1,000 unit tablet PO SCH (08:00)
[2019-10-20] MEDS: lisinopril 10 MG tablet PO SCH (08:00)
[2019-10-20] MEDS: furosemide 40mg/4ml inj IV SCH (08:00)
[2019-10-20] MEDS: heparin, porcine 5000 units/ml vial SQ SCH ×2 (08:06→20:51)
[2019-10-20] MEDS: Dakins solution (1/4 strength) 473ml solution TP SCH ×2 (08:07→20:51)
[2019-10-20] MEDS: MVI, adult No.4 with vit. K 10 ML in normal saline 500ml IV soln 500 ML IV SCH ×2 (11:16)
--- NOTE | 2019-10-20 14:46 | NUR ---
TF consult: Pt has been extubated. Pt confused and A/O x 1, per MD notes okay to start TF at low rate of 10-15 mL/hr. Pt s/p KUB with confirmation that Corpak has been placed in stomach, GRV will need to be checked Q4H to monitor tolerance to TF. Recommend using Vital HP with goal rate of 85 mL/hr to meet increased protein needs to support wound healing. Recommend weaning TPN as pt tolerates TF increases to goal rate. LBM 10/17. Will continue to follow closely. Recommend: 1. Continuous 2:1 TPN using Clinimix E 02/12 at 105ml/hr goal rate. 2. Separate 20% intralipids to run for 12 hours daily at 7 ml/hr to provide total 17grams lipids. 3. TPN and Intralipids will provide: 2388 total kcals, 126gAA, 1884 non-protein kcals, 504gDEX (3.30mg/kg/min), and .79 g/kg fat (9% of calories, will meet EFA needs). 4. Continuos TF via Corpak using Vital High Protein to begin at 15 mL/hr and advance by 20 mL Q8H as tolerated to goal rate of 85 mL/hr to provide: 2040 mL total volume/day, 2040 kcal, 179 g protein, and 1705 mL water 5. Additional 200 mL water flush Q4H 6. Wean TPN as pt tolerates TF increases to goal rate 7. daily wts; PALB Q / 8. Monitor for PN tolerance and signs of refeeding; K/Mg/Phos replacement per protocol 7. Advance to low fiber diet as medically indicated 8. bowel care as needed Addendum: 10/20/19 at [address] Amended: Links added.
--- NOTE | 2019-10-20 18:25 | NUR ---
Patient in room CICU 2007. I have received report from Ginger OSEI and had the opportunity to ask questions and assume patient care. Patient with visitors at shift change. Oxygen saturation is 99% RR 24/min on room air. Rhythm is ST 101. PT is awake & alert. Soft spoken. NGT to left nares with trickle feeds. TPN infusing via PICC line left upper arm. CVP is transduced. No distress at shift change. Contact precautions in place.
--- NOTE | 2019-10-20 19:00 | NUR ---
Order noted for trickle feeds only per Dr. Blevins.
[2019-10-20] MEDS: insulin glargine (Lantus) pen - multi-dose SQ SCH (20:40)
[2019-10-20] MEDS: lactobacillus rhamnosus 10,000 MMU CELLS/CAPSULE PO SCH (20:49)
[2019-10-20] MEDS: fat emulsion IV bag 250 ML IV SCH (20:51)
[2019-10-21] VITALS (26 sets, daily range): BP systolic 108–153; BP diastolic 45–105
[2019-10-21] MEDS: piperacillin/tazo 3.375gm/50ml 50 ML IV SCH ×3 (00:20→15:40)
[2019-10-21] MEDS: CALCIUM IV SCH ×2 (01:28→10:24)
[2019-10-21] MEDS: LYTES IV SCH ×2 (01:28→10:24)
[2019-10-21] MEDS: [UNRECOGNIZED DRUG - OTHER] IV SCH ×2 (01:28→10:24)
[2019-10-21] MEDS: TRACE ELEMENT IV SCH ×2 (01:28→10:24)
[2019-10-21] MEDS: DEXT IV SCH ×2 (01:28→10:24)
[2019-10-21] MEDS: insulin regular, human vial - multi-dose SQ SCH ×4 (02:37→20:21)
[2019-10-21 02:54] LABS: BASOPHILS # (AUTO) 0.1 X10'3 (0-0.2); BASOPHILS % (AUTO) 0.8 % (0-1); EOSINOPHILS # (AUTO) 0.2 X10'3 (0-0.9); EOSINOPHILS % (AUTO) 2.4 % (0-6); LYMPHOCYTES # (AUTO) 1.1 X10'3 (1.1-4.8); LYMPHOCYTES % (AUTO) 13.9 % (21-51); MEAN CORPUSCULAR HEMOGLOBIN 28.6 PG (27.0-31.0); MEAN CORPUSCULAR HGB CONC 32.9 g/dL (33.0-36.5); MEAN CORPUSCULAR VOLUME 86.8 FL (78-98); MEAN PLATELET VOLUME 8.5 FL (7.4-10.4); MONOCYTES % (AUTO) 13.4 % (2-12); NEUTROPHILS # (AUTO) 5.4 X10'3 (1.8-7.7); NEUTROPHILS % (AUTO) 69.5 % (42-75); PLATELET COUNT 237 X10'3 (140-440); RED BLOOD COUNT 2.43 X10'6 (4.20-5.60); RED CELL DISTRIBUTION WIDTH 20.1 % (11.5-14.5); WHITE BLOOD COUNT 7.7 X10'3 (4.5-11.0)
[2019-10-21 03:01] LABS: HEMATOCRIT 21.1 % (35.0-45.0); HEMOGLOBIN 6.9 g/dl (12.0-16.0)
--- NOTE | 2019-10-21 03:02 | NUR ---
HGB 6.9 HCT 21.1 Davon fontana. Pt to receive 1unit PRBC Addendum: 10/21/19 at 0321 by Elvi Marie RN Davon Durant is aware.
[2019-10-21 03:11] LABS: ALBUMIN 1.3 G/DL (3.4-5.0); ANION GAP 7 (8-16); BLOOD UREA NITROGEN 17 MG/DL (7-18); BUN/CREATININE RATIO 32.1 (6.6-38.0); CALCIUM 8.5 MG/DL (8.5-10.1); CHLORIDE 103 MMOL/L (99-107); CREATININE 0.53 MG/DL (0.40-0.90); GLUCOSE 146 MG/DL (70-104); MAGNESIUM 1.7 MG/DL (1.5-2.4); PHOSPHORUS 3.6 MG/DL (2.3-4.5); POTASSIUM 4.2 MMOL/L (3.5-5.1); SODIUM 137 MMOL/L (135-145); eGFR > 90 ML/MIN
[2019-10-21] MEDS: albuterol 2.5 MG/3 ML nebule NEB SCH ×4 (03:11→20:34)
[2019-10-21] MEDS: morphine 2 MG/ML inj. syringe IV PRN ×4 (03:15→22:31)
--- NOTE | 2019-10-21 05:29 | NUR ---
Blood transfusion started. Pt is awake drowsy. Oriented x3. No SOB lungs clear with diminished breath sounds.
--- NOTE | 2019-10-21 05:44 | NUR ---
No evidence of blood transfusion reaction.
[2019-10-21] MEDS: morphine/NS 100mg/100ml bag 100 ML IV SCH (06:05)
[2019-10-21] MEDS: fluconazole/NS 400mg/200ml bag 200 ML IV SCH (07:40)
[2019-10-21] MEDS: linezolid 600mg/300ml PREMIX 300 ML IV SCH ×2 (07:40→20:28)
[2019-10-21] MEDS: heparin, porcine 5000 units/ml vial SQ SCH ×2 (07:41→20:28)
[2019-10-21] MEDS: lactobacillus rhamnosus 10,000 MMU CELLS/CAPSULE PO SCH ×2 (07:41→20:28)
[2019-10-21] MEDS: lisinopril 10 MG tablet PO SCH (07:41)
[2019-10-21] MEDS: vitamin D (cholecalciferol) 1,000 unit tablet PO SCH (07:41)
[2019-10-21] MEDS: famotidine/PF 10 mg/ml inj IV SCH ×2 (07:41→19:54)
[2019-10-21] MEDS: folic acid 1mg tablet PO SCH (07:42)
[2019-10-21] MEDS: Dakins solution (1/4 strength) 473ml solution TP SCH ×2 (08:00→20:29)
[2019-10-21] MEDS: MVI, adult No.4 with vit. K 10 ML in normal saline 500ml IV soln 500 ML IV SCH ×2 (10:34)
[2019-10-21] MEDS: ondansetron/PF 4mg/2ml inj IV PRN ×2 (10:53→19:55)
[2019-10-21] MEDS: NORMAL SALINE IV SCH (13:49)
[2019-10-21] MEDS: MIDAZOLAM IV SCH (13:49)
[2019-10-21] MEDS ORDERED: [UNRECOGNIZED DRUG - OTHER] IV SCH ×4 (14:00)
[2019-10-21] MEDS ORDERED: LYTES IV SCH ×4 (14:00)
[2019-10-21] MEDS ORDERED: TRACE ELEMENT IV SCH ×4 (14:00)
[2019-10-21] MEDS ORDERED: CALCIUM IV SCH ×4 (14:00)
[2019-10-21] MEDS ORDERED: DEXT IV SCH ×4 (14:00)
--- NOTE | 2019-10-21 19:45 | NUR ---
Pt vomited 200 ml dark green/yellow fluid. J Carleen aware.Pt nauseated after repositioning.
[2019-10-21] MEDS: insulin glargine (Lantus) pen - multi-dose SQ SCH (20:20)
[2019-10-21] MEDS: fat emulsion IV bag 250 ML IV SCH (20:29)
[2019-10-22] VITALS (18 sets, daily range): BP systolic 114–150; BP diastolic 46–67
[2019-10-22] MEDS: piperacillin/tazo 3.375gm/50ml 50 ML IV SCH ×3 (00:20→15:13)
[2019-10-22] MEDS: morphine 2 MG/ML inj. syringe IV PRN ×3 (02:39→16:59)
[2019-10-22] MEDS: insulin regular, human vial - multi-dose SQ SCH ×2 (02:49→15:16)
[2019-10-22] MEDS: albuterol 2.5 MG/3 ML nebule NEB SCH ×3 (02:53→14:00)
[2019-10-22 03:04] LABS: BASOPHILS # (AUTO) 0.1 X10'3 (0-0.2); BASOPHILS % (AUTO) 0.6 % (0-1); EOSINOPHILS # (AUTO) 0.2 X10'3 (0-0.9); HEMATOCRIT 23.6 % (35.0-45.0); HEMOGLOBIN 8.1 g/dl (12.0-16.0); LYMPHOCYTES # (AUTO) 1.3 X10'3 (1.1-4.8); LYMPHOCYTES % (AUTO) 14.7 % (21-51); MEAN CORPUSCULAR HEMOGLOBIN 29.8 PG (27.0-31.0); MEAN CORPUSCULAR HGB CONC 34.3 g/dL (33.0-36.5); MEAN CORPUSCULAR VOLUME 86.9 FL (78-98); MEAN PLATELET VOLUME 8.4 FL (7.4-10.4); MONOCYTES % (AUTO) 10.7 % (2-12); NEUTROPHILS # (AUTO) 6.5 X10'3 (1.8-7.7); PLATELET COUNT 242 X10'3 (140-440); RED BLOOD COUNT 2.71 X10'6 (4.20-5.60); RED CELL DISTRIBUTION WIDTH 18.9 % (11.5-14.5); WHITE BLOOD COUNT 9.1 X10'3 (4.5-11.0)
[2019-10-22] MEDS: TRACE ELEMENT IV SCH (03:11)
[2019-10-22] MEDS: LYTES IV SCH (03:11)
[2019-10-22] MEDS: [UNRECOGNIZED DRUG - OTHER] IV SCH (03:11)
[2019-10-22] MEDS: CALCIUM IV SCH (03:11)
[2019-10-22] MEDS: DEXT IV SCH (03:11)
[2019-10-22 03:15] LABS: ALBUMIN 1.4 G/DL (3.4-5.0); ANION GAP 7 (8-16); BLOOD UREA NITROGEN 22 MG/DL (7-18); BUN/CREATININE RATIO 37.9 (6.6-38.0); CALCIUM 8.6 MG/DL (8.5-10.1); CHLORIDE 103 MMOL/L (99-107); CREATININE 0.58 MG/DL (0.40-0.90); GLUCOSE 119 MG/DL (70-104); POTASSIUM 4.2 MMOL/L (3.5-5.1); PREALBUMIN 15.6 MG/DL (19-36); SODIUM 136 MMOL/L (135-145); TOTAL CARBON DIOXIDE 26.5 MMOL/L (24-32); eGFR > 90 ML/MIN
[2019-10-22 03:16] LABS: PARTIAL THROMBOPLASTIN TIME 29 SECONDS (22-32)
--- NOTE | 2019-10-22 05:00 | NUR ---
Slept for short intervals during the night medicated for abdominal pain x2 with complete relief of throbbing/stabbing/burning pain. Remains on room air with oxygen saturation 99%. Lungs clear with diminished breath sounds bibasilar.Enteric trickle feeds at 15ml/hr residuals are 3-5ml. BS hypoactive, ileostomy with 250ml dark green/black fluid. One episode of N/V during the night relief obtained with zofran. CHARMAINE drain without drainage. Pt is beginning to assist in turning from side to side with encouragement & looks forward to working with physical therapy in getting OOB in the chair today. Hyperglycemic protocol level 6 at this time glucose 120 @0233. Pt is in fair spirits and is anxious at times.
--- NOTE | 2019-10-22 06:36 | NUR ---
Problems reprioritized. Patient report given, questions answered & plan of care reviewed with Heike OSEI.
--- NOTE | 2019-10-22 06:46 | NUR ---
Patient in room CICU 2007. I have received report from FARNAZ Boles and had the opportunity to ask questions and assume patient care.
[2019-10-22] MEDS: linezolid 600mg/300ml PREMIX 300 ML IV SCH (07:35)
[2019-10-22] MEDS: famotidine/PF 10 mg/ml inj IV SCH (07:37)
[2019-10-22] MEDS: fluconazole/NS 400mg/200ml bag 200 ML IV SCH (07:37)
[2019-10-22] MEDS: heparin, porcine 5000 units/ml vial SQ SCH (07:38)
[2019-10-22] MEDS: lisinopril 10 MG tablet PO SCH (07:41)
[2019-10-22] MEDS: vitamin D (cholecalciferol) 1,000 unit tablet PO SCH (07:41)
[2019-10-22] MEDS: folic acid 1mg tablet PO SCH (07:41)
[2019-10-22] MEDS: lactobacillus rhamnosus 10,000 MMU CELLS/CAPSULE PO SCH (07:41)
[2019-10-22] MEDS: ondansetron/PF 4mg/2ml inj IV PRN ×2 (08:08→14:29)
[2019-10-22] MEDS: Dakins solution (1/4 strength) 473ml solution TP SCH (08:11)
--- NOTE | 2019-10-22 10:23 | NUR ---
Called and spoke to pharmacist re safety of infusing Zosyn and Infuvite at same time. No compatibility found, infuvite will be retimed for dose on 10/23, today's dose will be administered late when Zosyn infusion has finished.
--- NOTE | 2019-10-22 16:03 | NUR ---
Reassessment: TPN is at half rate of 52.5 ml/hr. Tube feedings with corpak at 15 ml/hr, as discussed at rounds bedside RN will discuss with surgeon if can advance tube feedings as tolerated to goal rate and wean TPN. Will continue to follow closely. Recommend: 1. Continuous 2:1 TPN using Clinimix E 5/20 at 105ml/hr goal rate. 2. Separate 20% intralipids to run for 12 hours daily at 7 ml/hr to provide total 17grams lipids. 3. TPN and Intralipids will provide: 2388 total kcals, 126gAA, 1884 non-protein kcals, 504gDEX (3.30mg/kg/min), and .79 g/kg fat (9% of calories, will meet EFA needs). 4. Continuos TF via Corpak using Vital High Protein at 15 mL/hr trickle rate. When OK by surgeon to advance recommend to increase by 20 mL q 8 hours as tolerated to goal rate of 85 mL/hr to provide: 2040 mL total volume/day, 2040 kcal, 179 g protein, and 1705 mL water 5. Additional 200 mL water flush Q4H 6. Wean TPN as pt tolerates TF increases to goal rate 7. daily wts; PALB Q / 8. Advance to low fiber diet as medically indicated 9. bowel care as needed Addendum: 10/22/19 at [address] Amended: Links added.
--- NOTE | 2019-10-22 16:50 | NUR ---
Report called to Rose OSEI at [facility]. RN had opportunity to ask questions. Awaiting transport team arrival.
--- NOTE | 2019-10-22 17:26 | NUR ---
Pt adamantly refused wound care photos upon transfer to [facility]. Wound care photos not done on Tuesday per protocol.
--- NOTE | 2019-10-22 17:50 | NUR ---
Pt transported to [facility] with EMS and RN present. Pt transferred with Zosyn and TPN infusing. All pt belongings, including dentures, gathered up and sent with EMS. Transfer paperwork sent with EMS. Pt awake, alert and in stable condition upon discharge.
[2019-10-22] MEDS ORDERED: MVI, adult No.4 with vit. K 10 ML in normal saline 500ml IV soln 500 ML IV SCH ×2 (20:00)
== END 2019-10-22 17:30 | DRG 853 ==
LOC: ER 12:02 → ED HOLD 16:51 → SUR 3N 22:15 → CICU 2S 10-12 16:20
PROVIDERS: ADMIT Family Medicine; ATTEND Family Medicine
PROC: 0DNB0ZZ Release Ileum, Open Approach (ICD-10-PCS; 2019-10-12)
PROC: 0W9F0ZZ Drainage of Abdominal Wall, Open Approach (ICD-10-PCS; 2019-10-12)
PROC: 5A1955Z Respiratory Ventilation, Greater than 96 Consecutive Hours (ICD-10-PCS; 2019-10-12)
PROC: 0BH17EZ Insertion of Endotracheal Airway into Trachea, Via Natural or Artificial Opening (ICD-10-PCS; 2019-10-12)
PROC: 0D1B0Z4 Bypass Ileum to Cutaneous, Open Approach (ICD-10-PCS; principal; 2019-10-12 13:25)
PROC: 30233H1 Transfusion of Nonautologous Whole Blood into Peripheral Vein, Percutaneous Approach (ICD-10-PCS; 2019-10-22)
DX: A41.9 Sepsis, unspecified organism (principal); J96.00 Acute respiratory failure, unspecified whether with hypoxia or hypercapnia; L03.311 Cellulitis of abdominal wall; K50.90 Crohn's disease, unspecified, without complications; J90 Pleural effusion, not elsewhere classified; K56.7 Ileus, unspecified; J98.11 Atelectasis; K66.0 Peritoneal adhesions (postprocedural) (postinfection); K04.7 Periapical abscess without sinus; I10 Essential (primary) hypertension; K80.20 Calculus of gallbladder without cholecystitis without obstruction; D64.9 Anemia, unspecified; F17.210 Nicotine dependence, cigarettes, uncomplicated; E11.9 Type 2 diabetes mellitus without complications; E66.01 Morbid (severe) obesity due to excess calories; Z68.38 Body mass index [BMI] 38.0-38.9, adult; Z93.3 Colostomy status
CPT/HCPCS: 36430; 36573; 49406; 96365; 96375; 99285; Z7506; Z7508; 36415; 36600; 71045; 74018; 74176; 74177; 76937; 78226; 80047; 80048; 80053; 81001; 82247; 82803; 82810; 82948; 83036; 83605; 83735; 84100; 84132; 84134; 84145; 84478; 85018; 85025; 85027; 85610; 85730; 86885; 86900; 86901; 86920; 87040; 87070; 87075; 87077; 87081; 87088; 87102; 87186; 93005; 94002; 94003; 94640; 94760; 97110; 97161; 97530; 99152; 99153; A4421; A4618; A6446; A6449; A7000; A9537; G0378; J0131; J1100; J1170; J1450; J1644; J1720; J1815; J1885; J1940; J2001; J2020; J2250; J2270; J2405; J2543; J2704; J2710; J2805; J3010; J3475; J3480; J3490; J7030; J7040; J7060; J7120; P9016; P9045; Q9963; Q9967

== ENCOUNTER 2019-11-20 13:01 | Outpatient (CLI) | payer BC, OTHER ==
[~2019-11-20 13:01] MED LIST: ALBU2.5V13 NEB; CHOL100025 PO; FAMO20TA8 PO; FOLI0.4T2 PO; INSU100V43 SQ; INSU100V9 SQ; LISI10TA4 PO; POLY17PO10 PO; TRAZ-256 PO
== END 2019-11-20 23:59 | disposition home or self-care (01) ==
LOC: 64 CT 13:01
PROVIDERS: ATTEND Internal Medicine
DX: T81.43XA Infection following a procedure, organ and space surgical site, initial encounter (principal); K80.20 Calculus of gallbladder without cholecystitis without obstruction; K76.0 Fatty (change of) liver, not elsewhere classified; Y83.8 Other surgical procedures as the cause of abnormal reaction of the patient, or of later complication, without mention of misadventure at the time of the procedure; Y92.89 Other specified places as the place of occurrence of the external cause
CPT/HCPCS: 74176